=== PATIENT | female | born 1970 | race Caucasian/White ===

== ENCOUNTER 2020-10-26 15:37 | Outpatient (REF) | payer OTHER, SELFPAY ==
--- NOTE | ~2020-10-26 | MM_ITS ---
EXAMINATION: MM SCREENING DIGITAL BREAST TOMOSYNTHESIS, BILATERAL CLINICAL INFORMATION: Screening. Asymptomatic. The lifetime risk of breast cancer based on the Tyrer-Cuzick Model is 12%. COMPARISON: Mammography: 12/31/2018, 12/05/2017, 12/02/2016 TECHNIQUE: Digital breast tomosynthesis is performed in both the craniocaudal and mediolateral oblique views along with computer-aided detection (CAD). Synthesized 2D images are generated from the tomosynthesis. FINDINGS: The breasts are extremely dense, which lowers the sensitivity of mammography (ACR BI-RADS breast composition Category d). Parenchymal pattern appears similar to prior studies. There is no interval mass or architectural abnormality. The axilla and skin contours are unremarkable. There are punctate similar appearing scattered calcifications again seen in both breasts. Regional calcifications posterior upper outer right breast appear increased on the synthesized images. There is no appreciable focal grouping or ductal distribution. Patient will be recalled for additional views to further characterize. MM/MM tomosynthesis screening BI IMPRESSION: 1. Right: Regional calcifications upper outer quadrant possibly increased from prior studies. 2. Left: No mammographic evidence of malignancy. ASSESSMENT: BI-RADS 0: Incomplete - Need Additional Imaging Evaluation RECOMMENDATION: 1. Additional magnification views right breast regional calcifications. 2. Radiology department staff will contact the patient for additional imaging. This patient's information was entered into a reminder system with a target due date for their next mammogram.
== END 2020-10-26 15:38 | disposition home or self-care (01) ==
LOC: HO.MAMMO 15:37
PROVIDERS: PCP Hospitalist; Visit Provider Hospitalist
DX: Z12.31 Encounter for screening mammogram for malignant neoplasm of breast (principal)
CPT/HCPCS: 77063; 77067

== ENCOUNTER 2020-11-12 08:51 | Outpatient (REF) | payer OTHER, SELFPAY ==
--- NOTE | ~2020-11-12 | MM_ITS ---
EXAMINATION: MM DIAGNOSTIC DIGITAL MAMMOGRAPHY, RIGHT CLINICAL INFORMATION: Question increasing calcifications COMPARISON: Mammography: October 26, 2020 and studies dating back to December 02, 2015 TECHNIQUE: Digital mammography is performed in the following views: Spot magnification views right breast in craniocaudal and 90 degrees mediolateral views FINDINGS: The breasts are extremely dense, which lowers the sensitivity of mammography (ACR BI-RADS breast composition Category d). There are similar appearing scattered and loosely grouped calcifications. Recommend 6 month follow-up magnification views of the right breast to ensure stability. Results are provided to the patient at time of visit by the technologist. MM/MM added views RT IMPRESSION: Probably benign right breast calcifications. ASSESSMENT: BI-RADS 3: Probably Benign RECOMMENDATION: Diagnostic mammography in 6 months. This patient's information was entered into a reminder system with a target due date for their next mammogram.
== END 2020-11-12 08:52 | disposition home or self-care (01) ==
LOC: HO.MAMMO 08:51
PROVIDERS: Visit Provider Hospitalist
DX: R92.1 Mammographic calcification found on diagnostic imaging of breast (principal)
CPT/HCPCS: 77065

== ENCOUNTER 2021-05-19 12:16 | Outpatient (REF) | payer OTHER, SELFPAY ==
--- NOTE | ~2021-05-19 | MM_ITS ---
EXAMINATION: MM DIAGNOSTIC DIGITAL BREAST TOMOSYNTHESIS, RIGHT CLINICAL INFORMATION: Short interval six-month follow-up probable benign regional calcifications upper outer right breast The lifetime risk of breast cancer based on the Tyrer-Cuzick Model is 12%. COMPARISON: Mammography: 11/12/2020, 10/26/2020 (BI-RADS 0), 12/31/2018, 12/05/2017 TECHNIQUE: Digital breast tomosynthesis is performed in both the craniocaudal and mediolateral oblique views along with computer-aided detection (CAD). Synthesized 2D images are generated from the tomosynthesis. Additional magnification CC and magnification ML views are provided. FINDINGS: The breasts are extremely dense, which lowers the sensitivity of mammography (ACR BI-RADS breast composition Category d). Breast parenchymal pattern is similar to prior studies. There is no interval mass or architectural abnormality. The regional calcifications upper outer quadrant are similar to prior diagnostic exam. There are some scattered calcifications with layering on ML view consistent with milk of calcium. There are no interval pleomorphic types or ductal distribution. Calcifications will be reassessed again at time of annual bilateral mammography, due in 6 months. Results are provided to the patient at time of visit by the technologist. MM/MM tomosynthesis diagnostic RT IMPRESSION: No significant changes from prior exam. ASSESSMENT: BI-RADS 3: Probably Benign RECOMMENDATION: Magnification views right breast at time of annual bilateral mammography, due in 6 months. This patient's information was entered into a reminder system with a target due date for their next mammogram.
== END 2021-05-19 12:17 | disposition home or self-care (01) ==
LOC: HO.MAMMO 12:16
PROVIDERS: Visit Provider Hospitalist
DX: R92.1 Mammographic calcification found on diagnostic imaging of breast (principal)
CPT/HCPCS: 77061; 77065

== ENCOUNTER 2021-08-11 11:04 | Outpatient (REF) | payer OTHER, SELFPAY ==
[2021-08-11 12:31] LABS: COVID-19 Test Negative (Negative); IDNOW Serial# 16C4AD1C
== END 2021-08-11 11:05 | disposition home or self-care (01) ==
LOC: HO.LAB 11:04
PROVIDERS: Visit Provider Internal Medicine
DX: Z20.822 Contact with and (suspected) exposure to COVID-19 (principal)
CPT/HCPCS: 36415; 87635; C9803

== ENCOUNTER 2021-11-17 10:46 | Outpatient (REF) | payer OTHER, SELFPAY ==
--- NOTE | ~2021-11-17 | MM_ITS ---
EXAMINATION: MM DIAGNOSTIC DIGITAL BREAST TOMOSYNTHESIS, BILATERAL CLINICAL INFORMATION: Due for yearly. Also follow-up probable benign regional calcifications upper outer right breast. The lifetime risk of breast cancer based on the Tyrer-Cuzick Model is 12%. COMPARISON: Mammography: 05/19/2021, 11/12/2020, 10/26/2020 (BI-RADS 0) 12/31/2018, outside exam 12/05/2017 ([facility]). TECHNIQUE: Digital breast tomosynthesis is performed in both the craniocaudal and mediolateral oblique views along with computer-aided detection (CAD). Synthesized 2D images are generated from the tomosynthesis. FINDINGS: The breasts are extremely dense, which lowers the sensitivity of mammography (ACR BI-RADS breast composition Category d). Parenchymal pattern is similar to prior studies and there is no interval mass or architectural abnormality or developing density. The axilla and skin contours are unremarkable. There are scattered bilateral punctate benign round calcifications in each breast. The regional calcifications upper outer quadrant right breast are similar to prior diagnostic exams. There is no interval grouping or pleomorphic types or ductal distribution. The right breast calcifications for follow-up will be reassessed again at next bilateral annual mammography to conclude long-term surveillance. Results are provided to the patient at time of visit by the technologist. MM/MM tomosynthesis diagnostic BI IMPRESSION: -No mammographic evidence of malignancy. -Benign-appearing regional calcifications upper outer right breast, stable. ASSESSMENT: BI-RADS 3: Probably Benign RECOMMENDATION: Diagnostic mammography at time of next annual exam, due in 12 months. This patient's information was entered into a reminder system with a target due date for their next mammogram.
== END 2021-11-17 10:47 | disposition home or self-care (01) ==
LOC: HO.MAMMO 10:46
PROVIDERS: Visit Provider Hospitalist
DX: R92.1 Mammographic calcification found on diagnostic imaging of breast (principal)
CPT/HCPCS: 77062; 77066

== ENCOUNTER 2022-07-27 08:56 | Outpatient (REF) | payer OTHER, SELFPAY ==
[2022-07-27 14:22] LABS: MANUAL DIFF FLAG NO
[2022-07-27 14:34] LABS: Basophils Absolute Auto 0.1 X10*3/uL (0.0-0.2); Basophils Percent Auto 1.3 % (0-2); Eosinophils Absolute Auto 0.2 X10*3/uL (0.0-0.4); Eosinophils Percent Auto 3.4 % (0-4); Hematocrit 41.6 % (37.0-47.0); Hemoglobin 12.9 g/dl (12.0-16.0); Imm Gran Abs Auto 0.02 X10*3/uL (0.00-0.03); Imm Gran Pct Auto 0.4 % (0.0-0.4); Lymphocytes Absolute Auto 1.6 X10*3/uL (1.2-4.9); Lymphocytes Percent Auto 34.5 % (20-40); Mean Corpuscular Hemoglobin 25.8 pg (27.0-33.0); Mean Corpuscular Volume 83.2 fL (80.0-98.0); Mean Platelet Volume 10.7 fL (9.4-12.3); Monocytes Absolute Auto 0.4 X10*3/uL (0.1-1.2); Monocytes Percent Auto 8.8 % (2-11); Neutrophils Absolute Auto 2.4 x10*3/uL (2.0-8.3); Neutrophils Percent Auto 51.6 % (45-73); Platelet Count 247 X10*3/uL (160-400); Red Cell Distribution Width 14.2 % (11.0-16.0); White Blood Count 4.7 X10*3/uL (4.8-10.8)
[2022-07-27 17:03] LABS: Alanine Aminotransferase 27 U/L (0-31); Anion Gap 11 (12-20); Aspartate Amino Transferase 24 U/L (5-31); Blood Urea Nitrogen 12 mg/dL (9-16); Calcium 8.8 mg/dL (8.4-10.2); Carbon Dioxide 29 mmol/L (22-29); Chloride 105 mmol/L (96-108); Cholesterol 241 mg/dL; Estimated Glomerular Filt Rate > 60; Glucose Fasting 83 mg/dL (60-99); HDL Cholesterol 59 mg/dL; LDL Cholesterol Calculated 162 mg/dl; Magnesium 2.1 mg/dL (1.6-2.6); Potassium 4.1 mmol/L (3.3-5.1); Sodium 141 mmol/L (135-145); TSH reflex Free T4 4.38 uIU/mL (0.32-4.0); Triglycerides 100 mg/dL; Vitamin D 25-OH Total 58.2 ng/mL (>30)
[2022-07-27 19:02] LABS: Free T4 (Free Thyroxine) 1.03 ng/dL (0.71-1.85)
== END 2022-07-27 08:57 | disposition home or self-care (01) ==
LOC: HO.HMGCLDS 08:56
PROVIDERS: PCP Internal Medicine; Visit Provider Internal Medicine
DX: Z00.00 Encounter for general adult medical examination without abnormal findings (principal); H69.80 Other specified disorders of Eustachian tube, unspecified ear; H81.09 Meniere's disease, unspecified ear
CPT/HCPCS: 36415; 80048; 80061; 82306; 83735; 84439; 84443; 84450; 84460; 85025

== ENCOUNTER 2022-11-17 10:42 | Outpatient (REF) | payer OTHER, SELFPAY ==
--- NOTE | ~2022-11-17 | MM_ITS ---
EXAMINATION: MM DIAGNOSTIC DIGITAL BREAST TOMOSYNTHESIS, BILATERAL CLINICAL INFORMATION: Due for yearly. Also follow-up probable benign regional calcifications upper outer right breast. The lifetime risk of breast cancer based on the Tyrer-Cuzick Model is 12%. COMPARISON: Mammography: 11/17/2021, 05/19/2021, 11/12/2020, 10/26/2020 (BI-RADS 0, 12/31/2018 TECHNIQUE: Digital breast tomosynthesis is performed in both the craniocaudal and mediolateral oblique views along with computer-aided detection (CAD). Synthesized 2D images are generated from the tomosynthesis. Additional magnification right CC and magnification right ML views are obtained. FINDINGS: The breasts are extremely dense, which lowers the sensitivity of mammography (ACR BI-RADS breast composition Category d). Parenchymal pattern is similar to prior exams and there is no significant mass or developing density or architectural abnormality. No interval abnormal calcifications. The bilateral axilla and skin contours are unremarkable. Right breast calcifications for follow-up regional upper outer quadrant are similar to prior diagnostic studies and are now considered to be benign. Results are provided to the patient at time of visit by the technologist. MM/MM tomosynthesis diagnostic BI IMPRESSION: No mammographic evidence of malignancy. ASSESSMENT: BI-RADS 2: Benign RECOMMENDATION: Routine annual mammography screening. This patient's information was entered into a reminder system with a target due date for their next mammogram.
== END 2022-11-17 10:43 | disposition home or self-care (01) ==
LOC: HO.MAMMO 10:42
PROVIDERS: Visit Provider Internal Medicine
DX: R92.1 Mammographic calcification found on diagnostic imaging of breast (principal)
CPT/HCPCS: 77062; 77066

== ENCOUNTER 2022-12-19 11:45 | Outpatient (REF) | payer OTHER, SELFPAY ==
--- NOTE | ~2022-12-19 | US_ITS ---
EXAMINATION: US SCREENING ULTRASOUND BREAST, BILATERAL CLINICAL INFORMATION: Extremely dense breasts on mammography. Screening ultrasound. Tyrer-Cuzick Score 12%. COMPARISON: Mammography 11/17/2022 TECHNIQUE: Ultrasound is performed using grayscale imaging and color Doppler. Imaging is performed to include the four quadrants and retroareolar region. Both breasts are imaged. FINDINGS: Right breast: There is no suspicious finding by ultrasound. There is no cystic or solid mass or focal architectural abnormality. Left breast: There is no suspicious finding by ultrasound. There is no solid mass or focal architectural abnormality. There is an incidental simple cyst 10:00 position 5 cm from nipple measuring only 0.4 cm. US/US breast RT complete IMPRESSION: -Normal study. -Incidental tiny simple cyst left breast, 0.4 cm ASSESSMENT: BI-RADS 2: Benign RECOMMENDATION: Routine annual mammography screening. This patient's information was entered into a reminder system with a target due date for their next mammogram.
--- NOTE | ~2022-12-19 | US_ITS ---
EXAMINATION: US SCREENING ULTRASOUND BREAST, BILATERAL CLINICAL INFORMATION: Extremely dense breasts on mammography. Screening ultrasound. Tyrer-Cuzick Score 12%. COMPARISON: Mammography 11/17/2022 TECHNIQUE: Ultrasound is performed using grayscale imaging and color Doppler. Imaging is performed to include the four quadrants and retroareolar region. Both breasts are imaged. FINDINGS: Right breast: There is no suspicious finding by ultrasound. There is no cystic or solid mass or focal architectural abnormality. Left breast: There is no suspicious finding by ultrasound. There is no solid mass or focal architectural abnormality. There is an incidental simple cyst 10:00 position 5 cm from nipple measuring only 0.4 cm. US/US breast LT complete IMPRESSION: -Normal study. -Incidental tiny simple cyst left breast, 0.4 cm ASSESSMENT: BI-RADS 2: Benign RECOMMENDATION: Routine annual mammography screening. This patient's information was entered into a reminder system with a target due date for their next mammogram.
== END 2022-12-19 11:46 | disposition home or self-care (01) ==
LOC: HO.MAMMO 11:45
PROVIDERS: PCP Internal Medicine; Visit Provider Internal Medicine
DX: R92.2 Inconclusive mammogram (principal)
CPT/HCPCS: 76641

== ENCOUNTER 2023-03-07 11:51 | Outpatient (AMB) | payer OTHER, SELFPAY ==
--- NOTE | 2023-03-07 13:03 | A.OFFPC_ITS ---
Vital Signs 03/07/23 13:06 Height 5 ft 6 in Weight 158 lb BMI 25.5 BP 116/74 Blood Pressure Location Lt brachial Position Sitting Pulse 77 Pulse Source Pulse Oximeter Pulse Oximetry (%) 99 Oxygen Delivery Method Room Air Intake Visit Reasons: right shoulder and medical issues Intake Note: Pt is here today c/o Rt shoulder pain with weakness seen at [facility] they want surgery and patient wants to discuss any other options Allergies penicillin G Allergy (Unknown, Verified 03/07/23 13:16) Unknown penicillin G procaine Allergy (Unknown, Verified 03/07/23 13:16) Unknown penicillin V Allergy (Unknown, Verified 03/07/23 13:16) unknown latex glove Allergy (Unknown, Uncoded 03/07/23 13:16) Rash Penicillin G Proc & Benzathine Allergy (Unknown, Uncoded 03/07/23 13:16) Unknown Penicillium Notatum Allergy (Unknown, Uncoded 03/07/23 13:16) Unknown Medication List - Last Reconciled 03/07/23 by Dolores Jeronimo MD cetirizine (Zyrtec) 10 mg PO DAILY PRN cholecalciferol (vitamin D3) 125 mcg PO DAILY magnesium 400 mg PO DAILY zinc acetate orally 2 TIMES A WEEK; Tobacco use date assessed: 03/07/23 Dental Screening Dental Screen Date: 03/07/23 Did you have a dental visit in the last 12 months?: Yes Did you have a dental problem in the last 6 months where you did not have access to dental care?: No Was dental information given to patient?: Patient has dentist HPI right shoulder and medical issues HPI Details 53-year-old lady here today complaining of right shoulder pain, here today discuss other possible treatment options. She has been seeing Dr. Kendall at [facility] who ordered an MRI again of her right shoulder with results still pending, to better assess the tendon quality and make better productions whether or not rotator cuff repair may be indicated. She however is not due for a repeat corticosteroid injection at this time as she just had 1 in November of 2022, with relief only afforded for 2 months. Patient is very hesitant in getting repeat surgery in her shoulder, would like to try ultrasound-guided percutaneous lavage coupled with subacromial injection , or High energy shock wave therapy, however these treatments are not available at [facility] or at [facility] Medical History (Updated 03/08/23 @ 01:12 by Dolores Jeronimo MD) Calcific tendinitis of right shoulder Dense breast tissue on mammogram Eustachian tube dysfunction Meniere syndrome Tendinopathy of right shoulder Surgical History Hx of shoulder surgery S/p bilateral myringotomy with tube placement Family History Mother No problems noted. Father No problems noted. Social History Housing: House Patient Tobacco Use Status: Never used Tobacco e-Cigarette/Vaping Use: Never Used service: No Current occupational status: employed Cognitive needs: No Hearing needs: No Vision needs: Yes Questionnaire PHQ-9 Over the last 2 weeks, how often have you been bothered by any of the following problems? 1. Little interest or pleasure in doing things: not at all 2. Feeling down, depressed, or hopeless: not at all 3. Trouble falling or staying asleep, or sleeping too much: not at all 4. Feeling tired or having little energy: not at all 5. Poor appetite or overeating: not at all 6. Feeling bad about yourself - or that you are a failure or have let yourself or your family down: not at all 7. Trouble concentrating on things, such as reading the newspaper or watching television: not at all 8. Moving or speaking so slowly that other people could have noticed. Or the opposite - being so fidgety or restless that you have been moving around a lot more than usual: not at all 9. Thoughts that you would be better off or of hurting yourself in some way: not at all Total score: 0 Depression Screening Interpretation: Negative 45812 - PHQ-9 Billing: Yes Source: Developed by Drs. Sean Jackson, Lorraine Owen, Jose Brown and colleagues, with an educational amarilis from [employer]. Thrive Questionnaire Date Thrive assessed: 03/07/23 I am a: Patient What is your living situation today?: I have a steady place to live Within the past 12 months, did the food you bought not last and you didn't have the money to get more?: Never true Within the past 12 months, did you worry whether your food would run out before you got money to buy more?: Never true Do you have trouble paying for medicines?: No Do you have trouble getting transportation to medical appointments?: No Do you have trouble paying your heating and electricity bill?: No Do you have trouble taking care of your child, family member or friend?: No Do you have trouble with day-to-day activities such as bathing, preparing meals, shopping, managing finances, etc.?: No Are you currently unemployed and looking for a job?: No Are you interested in more education?: No AUDIT C Alcohol Use Questionnaire (AUDIT-C) 1. How often do you have a drink containing alcohol?: Never Total Score: 0 GUANAKO-7 AMB Questionnaire GUANAKO-7 Date GUANAKO - 7 assessed: 03/07/23 Feeling nervous, anxious, or on edge: 0 = Not at all Not being able to stop or control worryin = Not at all Worrying too much about different things: 0 = Not at all Trouble relaxin = Not at all Being so restless that it is hard to sit still: 0 = Not at all Becoming easily annoyed or irritable: 0 = Not at all Feeling afraid as if something awful might happen: 0 = Not at all Total GUANAKO-7 score (0-4 normal; 5-9 mild; 10-14 moderate; 15-21 severe): 0 Source: Developed by Drs. Sean Jackson, Lorraine Owen, Jose Brown and colleagues, with an educational amarilis from [employer]. Review of Systems Const All systems reviewed & are unremarkable except as noted in HPI and below Physical exam (Primary Care) Vital Signs: Last Vital Signs Pulse 77 03/07/23 13:06 BP 116/74 03/07/23 13:06 Pulse Ox 99 03/07/23 13:06 Oxygen Delivery Method Room Air 03/07/23 13:06 BMI result Body Mass Index 25.5 Tobacco/Smoking Status: Tobacco use Status Tobacco use date assessed 03/07/23 03/07/23 13:08 Patient Tobacco Use Status Never used Tobacco 03/07/23 13:03 e-Cigarette/Vaping Use Never Used 03/07/23 13:03 PHQ-9: PHQ-9 Score PHQ-9: Total score 0 03/07/23 13:30 Depression Screening Interpretation: Negative Thrive Assessment: Date of Thrive Assessment Date Thrive assessed 03/07/23 03/07/23 13:12 Const Other: Alert oriented x3, no acute distress noted, ambulatory normal gait Extrem Other: Tenderness on palpation over right shoulder joint, with limited range of motion especially on abduction of joint due to pain Assessment and Plan Assessment & Plan (1) Enteropathic arthropathy of right shoulder: Code(s): M07.611 - Enteropathic arthropathies, right shoulder (2) Calcific tendinitis of right shoulder: Code(s): M75.31 - Calcific tendinitis of right shoulder Plan: Will refer for physical therapy to see if this will help alleviate some of her discomfort. In the meantime advised patient to check with her insurance if she is able to see orthopedics in [place], were may have more advanced treatment options available for her that are not as invasive as arthroscopic surgery Orders: Orders PT Evaluation and Treatment 03/07/23 M07.611 - Enteropathic arthropathies, right shoulder Coding Level of Care Code Est Pt Level 3 (87455) Diagnoses Enteropathic arthropathy of right shoulder M07.611 Calcific tendinitis of right shoulder M75.31
[2023-03-07 13:06] VITALS: BP 116/74; PULSE 77; O2SAT 99; BMI 25.5
== END 2023-03-07 13:42 | disposition home or self-care (01) ==
PROVIDERS: PCP Internal Medicine; Visit Provider Internal Medicine
DX: M07.611 Enteropathic arthropathies, right shoulder (principal); M75.31 Calcific tendinitis of right shoulder
CPT/HCPCS: 99213

== ENCOUNTER 2023-03-28 07:11 | Outpatient (REF) | payer OTHER, SELFPAY ==
--- NOTE | ~2023-03-28 | MR_ITS ---
EXAMINATION: MR SHOULDER WITHOUT CONTRAST, RIGHT CLINICAL INFORMATION: Pain. Question rotator cuff tear. COMPARISON: 10/29/2008 TECHNIQUE: MRI of the shoulder without contrast was performed on a high-field scanner. FINDINGS: ROTATOR CUFF: A small partial-thickness articular sided tear is evident at the anterior fibers of the supraspinatus tendon, measuring approximately 8 x 6 mm in area involving the deep third of the tendon cross-section. There is [id number] associated supraspinatus and subscapularis tendinosis. Undersurface fraying is present at the subscapularis tendon without a discrete tear. Infraspinatus tendon is intact with more mild tendinosis. There are small foci of low signal intensity at the bursal surface margin of the supraspinatus and infraspinatus tendon insertions measuring 2 and 3 mm in diameter, less pronounced as compared to prior, most consistent with foci residual calcific tendinitis.. There is mild surrounding edema signal in this region. Subtle underlying cortical irregularity is noted at the greater tuberosity. No muscle atrophy or fatty infiltration. BICEPS: Normal. CORACOACROMIAL ARCH: The undersurface of the acromion is remodeled, likely due to prior subacromial decompression. There is blunting of the distal clavicle, likely the result of prior distal clavicular resection. Trace subacromial subdeltoid bursal fluid. LABRUM/CAPSULE: Labrum and joint capsule are intact. GLENOHUMERAL JOINT/MARROW: There is subtle cortical irregularity at the greater tuberosity which is likely due to chronic overlying tendinopathy. No fractures. Articular cartilage appears relatively well-preserved. No effusion. No fracture or malalignment. MR/MR shoulder RT wo con IMPRESSION: 1. [id number] supraspinatus and subscapularis tendinosis with a small 8 x 6 mm partial-thickness articular sided tear of the anterior fibers of the supraspinatus tendon. 2. Small foci of calcific tendinitis at the supraspinatus and infraspinatus tendon insertions, less pronounced as compared to prior. 3. Status post subacromial decompression and distal clavicular resection.
== END 2023-03-28 07:12 | disposition home or self-care (01) ==
LOC: HO.MRI 07:11
PROVIDERS: PCP Internal Medicine; Visit Provider Orthopaedic Surgery
DX: M25.511 Pain in right shoulder (principal)
CPT/HCPCS: 73221

== ENCOUNTER 2023-05-16 11:00 | Outpatient (RCR) | payer OTHER, SELFPAY ==
--- NOTE | 2023-04-05 08:49 | MHC.PT.EP ---
[facility] [place] Office [place] Office [place] Office [address] Jason Diego [address] [phone] F: [phone] F: [phone] F: [phone] F: [phone] Physical Therapy Plan of Care Date of Evaluation: Date of Surgery: NA Diagnosis: Assessment: Pt IS 53 YO F REFERRED TO PT FROM DR PRADO WITH R SHLDER ARTHROPATHY. Pt HAS HAD SAD B SHLDER IN PAST NOW WITH SUPRASPINATUS TEAR. TO SEE SURGEON ON MONDAY RE SURGERY ( CLEAN UP CALCIUM DEPOSITS ). PRESENTS WITH R SHLDER PAIN, LIMITED STRENGTH AND SLIGHT DECREASE IN END RANGE OF MOTION. GOOD PT CANDIDATE TO ADDRESS THESE ISSUES Frequency and Duration: The patient will be seen 2X/WK X 4 WKS Short Term Goals: 1. INCREASED POSTURE AWARENESS AND AWARNESS SHLDER CARE 2. I HEP WITH DC EX PLAN Residential Goals: 1. DECREASED R SHLDER PAIN WITH ADLS 2. I KT (WITH ASSIST AT HOME) IF INDICATED Treatment Plan: Modalities to reduce pain, spasms and effusion. Manual therapy to restore motion and function. Therapeutic exercise to improve strength and flexibility. Neuromuscular re-education for posture and balance. Therapeutic activities to return to functional activities of daily living. Electronically signed by: FLAQUITO DEL REAL PT Please sign and return to therapist. Thank you for your referral.
--- NOTE | 2023-05-16 12:51 | MHC.PT.DC ---
[facility] [place] Office [place] Office [place] Office [address] Jason Diego [address] [phone] F: [phone] F: [phone] F: [phone] F: [phone] Physical Therapy Discharge Report Diagnosis: ARTHROPATHY R SHLDER Date of Surgery: NA Date of Evaluation: 04/04/23 Date of Discharge: 05/16/23 Treatments to Date: Cancellations to Date: No Shows to Date: Discharge Status: Achieved Goals Discharge Summary: Pt REPORTS SIGNIF REDUCTION IN PAIN AND IMPROVEMENT IN ROM (STANDING ABDUCTION WFLS WITHOUT PINCH ) Electronically signed by: FLAQUITO DEL REAL PT Please sign and return to therapist. Thank you for your referral.
== END 2023-05-16 12:51 | disposition home or self-care (01) ==
LOC: HO.PT 11:00
PROVIDERS: PCP Internal Medicine; Visit Provider Registered Nurse
DX: M07.611 Enteropathic arthropathies, right shoulder (principal)
CPT/HCPCS: 97110; 97140; 97161; 97535

== ENCOUNTER 2023-08-01 09:13 | Outpatient (AMB) | payer OTHER, SELFPAY ==
[2023-08-01 09:30] VITALS: BP 114/86; PULSE 72; O2SAT 98; BMI 26.7
--- NOTE | 2023-08-01 09:30 | A.OFFPC_ITS ---
Vital Signs 08/01/23 09:30 Height 5 ft 6 in Weight 165 lb 4 oz BMI 26.7 BP 114/86 Blood Pressure Location Lt brachial Position Sitting Pulse 72 Pulse Source Pulse Oximeter Pulse Oximetry (%) 98 Oxygen Delivery Method Room Air Intake Visit Reasons: Annual PE Intake Note: Pt is here for her Annual PE Last Pap 12/04 at [facility] Is last menstrual period known: Yes Last menstrual period: 07/03/23 Allergies penicillin G Allergy (Unknown, Verified 09/07/23 15:47) Unknown penicillin G procaine Allergy (Unknown, Verified 09/07/23 15:47) Unknown penicillin V Allergy (Unknown, Verified 09/07/23 15:47) unknown latex glove Allergy (Unknown, Uncoded 09/07/23 15:47) Rash Penicillin G Proc & Benzathine Allergy (Unknown, Uncoded 09/07/23 15:47) Unknown Penicillium Notatum Allergy (Unknown, Uncoded 09/07/23 15:47) Unknown Medication List - Last Reconciled 09/07/23 by Dolores Jeronimo MD cetirizine (Zyrtec) 10 mg PO DAILY PRN cholecalciferol (vitamin D3) 125 mcg PO DAILY magnesium 400 mg PO DAILY multivitamin (Daily Multi-Vitamin tablet) 1 tab PO DAILY mupirocin calcium 2% 1 appl topical TID 7 days zinc acetate orally 2 TIMES A WEEK; Tobacco use date assessed: 08/01/23 Dental Screening Dental Screen Date: 08/01/23 Did you have a dental visit in the last 12 months?: Yes Did you have a dental problem in the last 6 months where you did not have access to dental care?: No Was dental information given to patient?: Patient has dentist HPI Annual PE HPI Details 53-year-old lady here today for physical exam. Currently sees her own OBGYN, up-to-date with her Pap smear and pelvic exam done November 2022. [facility] Medical History (Updated 08/01/23 @ 10:36 by Dolores Jeronimo MD) Elevated TSH Hyperlipidemia Calcific tendinitis of right shoulder Dense breast tissue on mammogram Meniere syndrome Eustachian tube dysfunction Tendinopathy of right shoulder Surgical History (Updated 08/01/23 @ 10:12 by Dolores Jeronimo MD) S/p bilateral myringotomy with tube placement Hx of shoulder surgery Family History Mother No problems noted. Father No problems noted. Social History Housing: House Patient Tobacco Use Status: Never used Tobacco e-Cigarette/Vaping Use: Never Used service: No Current occupational status: employed Cognitive needs: No Hearing needs: No Vision needs: Yes Female Reproductive History Menstrual Date of last menstrual period: 07/03/23 History of abnormal pap smear: No Other: goes to [facility] , sees Dr Loera who does her cervical screen Questionnaire Thrive Questionnaire Date Thrive assessed: 03/07/23 AUDIT C Alcohol Use Questionnaire (AUDIT-C) 1. How often do you have a drink containing alcohol?: Monthly or less 2. How many drinks containing alcohol do you have on a typical day when you are drinking?: 1 or 2 3. How often do you have six or more drinks on one occasion?: Never Total Score: 1 GUANAKO-7 AMB Questionnaire GUANAKO-7 Date GUANAKO - 7 assessed: 03/07/23 Source: Developed by Drs. Sean Jackson, Lorraine Owen, Jose Brown and colleagues, with an educational amarilis from [employer]. Review of Systems Const Reports no additional complaints Eyes Details: Goes to [facility], up-to-date with eye exam, wears reading glasses ENT Reports Normal hearing present, Denies dizziness, Denies ear discharge, Denies otalgia, Denies hearing loss, Denies disequilibrium and Reports tinnitus (Occasional) Card Reports no additional complaints Resp Reports no additional complaints GI Denies abdominal pain, Denies melena, Reports bloating (Just before menstrual cycle), Denies hematochezia, Reports constipation (Occasion), Denies heartburn and Denies nausea Details: Followed by Dr. Loera Reports hot flashes Musc Details: Shoulder pain stiffness, currently being followed at [facility] Denies muscle weakness Skin/Breast Details: sees [facility] for her routine skin exam Neuro Reports no additional complaints, Reports Normal hearing present, Denies dizziness and Denies disequilibrium Psych Reports no additional complaints Endo Reports no additional complaints Carlitos/Lymph Reports no additional complaints Aller/Immun Reports as per HPI Physical exam (Primary Care) Vital Signs: Last Vital Signs Pulse 72 08/01/23 09:30 BP 114/86 08/01/23 09:30 Pulse Ox 98 08/01/23 09:30 Oxygen Delivery Method Room Air 08/01/23 09:30 BMI result Body Mass Index 26.7 Tobacco/Smoking Status: Tobacco use Status Tobacco use date assessed 08/01/23 08/01/23 09:41 Patient Tobacco Use Status Never used Tobacco 08/01/23 09:30 e-Cigarette/Vaping Use Never Used 08/01/23 09:30 Thrive Assessment: Date of Thrive Assessment Date Thrive assessed 03/07/23 08/01/23 09:30 Const General: cooperative, comfortable, no acute distress, alert and awake Nutritional Appearance: average body habitus Orientation/consciousness: patient oriented x3 Limitations: no limitations HENMT Head: Yes normocephalic and Yes atraumatic Ears: hearing grossly normal bilaterally, external ears normal, TM's normal bilaterally and EAC's normal General nose exam: Normal external nose present and No nasal discharge present Face and sinus: Yes sinuses nontender and Yes face symmetric Mouth: Normal oral and palatal mucosa present, oropharynx normal and moist mucous membranes abnormal Eyes General: appearance normal, both eyes and all related structures Conjunctivae: conjunctivae normal Sclerae: sclerae normal Corneas: corneas normal Pupils: Equal, round and reactive pupils present EOM: EOMs intact bilaterally Direct Ophthalmoscopy: normal light reflex Neck Neck: Yes full ROM, Yes no lymphadenopathy and Yes supple Thyroid: Thyroid normal Chest Chest palpation & inspection: normal inspection of the chest Breast/axilla palpation: normal palpation of the breasts Resp Effort & Inspection: normal respiratory effort and able to speak in complete sentences Auscultation: clear to auscultation bilaterally Cardio Jugular venous distension: no JVD Palpation: normal PMI Rate: regular rate Rhythm: regular rhythm Heart sounds: S1 normal heart sound present and S2 normal heart sound present Bruits: no abdominal aortic bruits GI Inspection: Yes normal to inspection Palpation (GI): No Abdominal aortic bruit present, Soft to palpation, nontender, no guarding and no masses Auscultation: normal bowel sounds General: Yes no CVA tenderness and Yes deferred (sees for her routine Pap and pelvic exam) Back/Spine/Pelvis Back: no CVA tenderness and No back tenderness Cervical Spine: cervical ROM normal Thoracic/Lumbar Spine: thoracic and lumbar spine normal to inspection Pelvis: no pain with anterior-posterior compression Skin General skin exam: no rashes or lesions noted Neuro General: patient oriented x3, gait normal, tone normal, moves all extremities and CN's II-XI intact bilaterally Cranial nerves: Yes Equal, round and reactive pupils present and Yes Normal hearing present Cognition (Neuro): normal cognition Gait exam (Neuro): Normal gait present Extrem General: Yes normal to inspection, Yes full ROM, Yes no joint enlargement, Yes no clubbing, cyanosis or edema, Yes no calf tenderness and Yes normal gait Psych Appearance: grossly normal and well kempt Mental Status: mental status grossly normal Speech and movement: Normal speech and movement present Affect: normal affect Attitude: cooperative Thought process: Normal thought process present Thought content: Normal thought content present Immunizations Boostrix Tdap 2.5 Lf unit-8 mcg-5 Lf/0.5 mL intramuscular syringe Performing Provider: Dolores Jeronimo MD [facility] Administered by: Karlene Goss CMA on 08/01/23 10:43 Dose Route Admin Location Dispensed Lot Number Expiration Date NDC Personal Care Aide 0.5 mL IM Left Deltoid 0.5 mL [id number] 07/19/25 [id number] [employer] VIS Given Date VIS Provided VIS Publication Date 08/01/23 Single Vaccine 21 Eligibility Eligibility Date Funding Source Not [facility] Eligible 08/01/23 Private Assessment and Plan Assessment & Plan (1) Annual visit for general adult medical examination with abnormal findings: Code(s): Z00.01 - Encounter for general adult medical examination with abnormal findings Plan: Will check appropriate labs. Continue regular dental visit every 6 months and regular eye exams, at least every 2 years. Take adequate calcium in diet and continue vitamin-D 3 at 5000 IU per cap TIW, in addition to weight-bearing exercises to help maintain good muscle tone and weight control, continue yoga. Continue to do self-breast exam, and get yearly mammogram, . She sees [facility] for her routine Pap and pelvic exam, currently up-to-date.. Up-to-date with her flu shot and COVID vaccination, recently contracted COVID infection, up-to-date with her shingles vaccine, Tdap given today. Up-to-date with her screening colonoscopy (2) Elevated TSH: Code(s): R79.89 - Other specified abnormal findings of blood chemistry Plan: Repeat another TSH and free T4 level. Currently asymptomatic (3) Hyperlipidemia: Code(s): E78.5 - Hyperlipidemia, unspecified Qualifiers: Hyperlipidemia type: pure hypercholesterolemia Qualified Code(s): E78.00 - Pure hypercholesterolemia, unspecified Plan: Fasting lipid panel ordered today, advised to try following a Mediterranean diet, continue regular exercise (4) Folliculitis: Code(s): L73.9 - Follicular disorder, unspecified Plan: Prescription sent for mupirocin 2% cream, apply 3 times a day to affected area for 7 days, return to clinic if no i resolution of lesion seen Orders: Orders Lipid Panel 08/02/23 Z00.01 - Encounter for general adult medical examination with abnormal findings, L73.9 - Follicular disorder, unspecified, E78.5 - Hyperlipidemia, unspecified, R79.89 - Other specified abnormal findings of blood chemistry Glucose Fasting 08/02/23 Z00.01 - Encounter for general adult medical examination with abnormal findings, L73.9 - Follicular disorder, unspecified, E78.5 - Hyperlipidemia, unspecified, R79.89 - Other specified abnormal findings of blood chemistry Basic Metabolic Panel Fasting 08/02/23 Z00.01 - Encounter for general adult medical examination with abnormal findings, L73.9 - Follicular disorder, unspecified, E78.5 - Hyperlipidemia, unspecified, R79.89 - Other specified abnormal findings of blood chemistry Free T4 (Free Thyroxine) 3 Months E03.9 - Hypothyroidism, unspecified, Z00.01 - Encounter for general adult medical examination with abnormal findings, L73.9 - Follicular disorder, unspecified, E78.5 - Hyperlipidemia, unspecified, R79.89 - Other specified abnormal findings of blood chemistry TDaP Immunization 08/01/23 Z23 - Encounter for immunization Vitamin D 25-OH Total 08/02/23 Z00.01 - Encounter for general adult medical examination with abnormal findings, L73.9 - Follicular disorder, unspecified, E78.5 - Hyperlipidemia, unspecified, R79.89 - Other specified abnormal findings of blood chemistry Vitamin B12 and Folate 08/02/23 Z00.01 - Encounter for general adult medical examination with abnormal findings, L73.9 - Follicular disorder, unspecified, E78.5 - Hyperlipidemia, unspecified, R79.89 - Other specified abnormal findings of blood chemistry Thyroid Stimulating Hormone 08/02/23 Z00.01 - Encounter for general adult medical examination with abnormal findings, L73.9 - Follicular disorder, unspecified, E78.5 - Hyperlipidemia, unspecified, R79.89 - Other specified abnormal findings of blood chemistry Medications: New mupirocin calcium 2% 1 appl topical TID 30 grams 0RF 7 days L73.9 - Follicular disorder, unspecified Coding Level of Care Code Est Pt Prev Care 40-64y(28879) Diagnoses Annual visit for general adult medical examination with abnormal findings Z00.01 Elevated TSH R79.89 Pure hypercholesterolemia E78.00 Hyperlipidemia type: pure hypercholesterolemia Folliculitis L73.9
== END 2023-08-01 10:43 | disposition home or self-care (01) ==
PROVIDERS: Visit Provider Internal Medicine
DX: Z23 Encounter for immunization (principal)
CPT/HCPCS: 90471; 90715; 99396

== ENCOUNTER 2023-08-02 07:56 | Outpatient (REF) | payer OTHER, SELFPAY ==
[2023-08-02 12:36] LABS: Folate 11.4 ng/mL (> or = 4.0); Vitamin B12 996 pg/mL (200-900)
[2023-08-02 14:49] LABS: Anion Gap 10 (12-20); Blood Urea Nitrogen 16 mg/dL (9-16); Calcium 8.8 mg/dL (8.4-10.2); Carbon Dioxide 28 mmol/L (22-29); Chloride 105 mmol/L (96-108); Cholesterol 216 mg/dL (<200); Estimated Glomerular Filt Rate > 60; Glucose Fasting 83 mg/dL (60-99); HDL Cholesterol 58 mg/dL (>40); LDL Cholesterol Calculated 140 mg/dL (<100); Potassium 4.4 mmol/L (3.3-5.1); Sodium 139 mmol/L (135-145); Triglycerides 94 mg/dL (<150)
[2023-08-02 15:07] LABS: Thyroid Stimulating Hormone 4.62 uIU/mL (0.32-4.0); Vitamin D 25-OH Total 74.5 ng/mL (>30)
== END 2023-08-02 07:57 | disposition home or self-care (01) ==
LOC: HO.HMGCLDS 07:56
PROVIDERS: PCP Internal Medicine; Visit Provider Internal Medicine
DX: Z00.01 Encounter for general adult medical examination with abnormal findings (principal); L73.9 Follicular disorder, unspecified; R79.89 Other specified abnormal findings of blood chemistry; E78.5 Hyperlipidemia, unspecified
CPT/HCPCS: 36415; 80048; 80061; 82306; 82607; 82746; 84443

== ENCOUNTER 2023-10-11 14:40 | Outpatient (AMB) | payer OTHER, SELFPAY ==
--- NOTE | 2023-10-11 14:37 | MHC.PC.OV ---
Intake Visit Reasons: f/u depression I phone [phone] Allergies penicillin G Allergy (Unknown, Verified 10/11/23 15:03) Unknown penicillin G procaine Allergy (Unknown, Verified 10/11/23 15:03) Unknown penicillin V Allergy (Unknown, Verified 10/11/23 15:03) unknown latex glove Allergy (Unknown, Uncoded 10/11/23 15:03) Rash Penicillin G Proc & Benzathine Allergy (Unknown, Uncoded 10/11/23 15:03) Unknown Penicillium Notatum Allergy (Unknown, Uncoded 10/11/23 15:03) Unknown Medication List - Last Reconciled 10/11/23 by Dolores Jeronimo MD cetirizine (Zyrtec) 10 mg PO DAILY PRN cholecalciferol (vitamin D3) 125 mcg PO DAILY magnesium 400 mg PO DAILY multivitamin (Daily Multi-Vitamin tablet) 1 tab PO DAILY mupirocin calcium 2% 1 appl topical TID 7 days zinc acetate orally 2 TIMES A WEEK; Tobacco use date assessed: 10/11/23 Dental Screening Dental Screen Date: 10/11/23 Did you have a dental visit in the last 12 months?: Yes Did you have a dental problem in the last 6 months where you did not have access to dental care?: No Was dental information given to patient?: Patient has dentist HPI f/u depression I phone [phone] HPI Details 53-year-old perimenopausal female, here today by telehealth complaining of fluctuating moods with frequent anxiety attacks, difficulty sleeping, present now for the last several months. Patient states that there are days that she is unable to fall asleep due to constant worrying, has episodes of depression with no triggers or precipitating event. Had episodes in the past but would come and go and is easily controlled with behavioral modifications. Has seen therapist in the past but has never been on any medication for depression or anxiety [facility] Medical History Mixed anxiety and depressive disorder Elevated TSH Hyperlipidemia Calcific tendinitis of right shoulder Dense breast tissue on mammogram Meniere syndrome Eustachian tube dysfunction Tendinopathy of right shoulder Surgical History S/p bilateral myringotomy with tube placement Hx of shoulder surgery Family History Mother No problems noted. Father No problems noted. Social History Housing: House Patient Tobacco Use Status: Never used Tobacco e-Cigarette/Vaping Use: Never Used service: No Current occupational status: employed Cognitive needs: No Hearing needs: No Vision needs: Yes Questionnaire PHQ-9 Over the last 2 weeks, how often have you been bothered by any of the following problems? 1. Little interest or pleasure in doing things: not at all 2. Feeling down, depressed, or hopeless: several days 3. Trouble falling or staying asleep, or sleeping too much: more than half the days 4. Feeling tired or having little energy: several days 5. Poor appetite or overeating: several days 6. Feeling bad about yourself - or that you are a failure or have let yourself or your family down: not at all 7. Trouble concentrating on things, such as reading the newspaper or watching television: not at all 8. Moving or speaking so slowly that other people could have noticed. Or the opposite - being so fidgety or restless that you have been moving around a lot more than usual: several days 9. Thoughts that you would be better off or of hurting yourself in some way: not at all Total score: 6 Depression Screening Interpretation: Positive Depression Screening Follow-up: New Medication prescribed, Community Mental Health Worker F/U and Follow-up Visit Requested Depression Screening Done: Yes 23762 - PHQ-9 Billing: Yes Source: Developed by Drs. Sean Jackson, Lorraine Owen, Jose Brown and colleagues, with an educational amarilis from [email or web address]. Thrive Questionnaire Date Thrive assessed: 10/11/23 I am a: Patient What is your living situation today?: I have a steady place to live Within the past 12 months, did the food you bought not last and you didn't have the money to get more?: Never true Within the past 12 months, did you worry whether your food would run out before you got money to buy more?: Never true Do you have trouble paying for medicines?: No Do you have trouble getting transportation to medical appointments?: No Do you have trouble paying your heating and electricity bill?: No Do you have trouble taking care of your child, family member or friend?: No Do you have trouble with day-to-day activities such as bathing, preparing meals, shopping, managing finances, etc.?: No Are you currently unemployed and looking for a job?: No Are you interested in more education?: No Please select the resources that you would like help with: None THRIVE Score: 0 AUDIT C Alcohol Use Questionnaire (AUDIT-C) 1. How often do you have a drink containing alcohol?: 2-4 times a month 2. How many drinks containing alcohol do you have on a typical day when you are drinking?: 1 or 2 3. How often do you have six or more drinks on one occasion?: Never Total Score: 2 GUANAKO-7 AMB Questionnaire GUANAKO-7 Date GUANAKO - 7 assessed: 03/15/23 Feeling nervous, anxious, or on edge: 1 = Several days Not being able to stop or control worryin = Not at all Worrying too much about different things: 0 = Not at all Trouble relaxin = Several days Being so restless that it is hard to sit still: 0 = Not at all Becoming easily annoyed or irritable: 1 = Several days Feeling afraid as if something awful might happen: 1 = Several days Total GUANAKO-7 score (0-4 normal; 5-9 mild; 10-14 moderate; 15-21 severe): 4 Source: Developed by Drs. Sean Jackson, Lorraine Owen, Jose Brown and colleagues, with an educational amarilis from [email or web address]. GUANAKO-7 Assessment Billing GUANAKO-7 Assessment Tool: GUANAKO-7 Assessment 85880 Review of Systems Const Reports as per HPI, Denies headache(s), Reports lethargy and Reports malaise ENT Reports no additional complaints and Denies headache(s) Card Reports no additional complaints GI Denies abdominal pain and Denies change in bowel habits Neuro Denies behavioral changes and Denies headache(s) Psych Reports no additional complaints, Reports as per HPI and Denies behavioral changes Physical exam (Primary Care) Tobacco/Smoking Status: Tobacco use Status Tobacco use date assessed 10/11/23 10/11/23 14:40 Patient Tobacco Use Status Never used Tobacco 10/11/23 14:40 e-Cigarette/Vaping Use Never Used 10/11/23 14:40 PHQ-9: PHQ-9 Score PHQ-9: Total score 6 10/11/23 15:13 Depression Screening Interpretation: Positive Depression Screening Follow-up: New Medication prescribed, Community Mental Health Worker F/U and Follow-up Visit Requested Thrive Assessment: Date of Thrive Assessment Date Thrive assessed 10/11/23 10/11/23 14:40 Telehealth Telehealth Location of provider rendering services: practice address Location of patient: address on file Patient Identification confirmed using: Name, : Yes Telehealth method: video Patient verbally consented to treatment: Yes Patient verbally consented to billing insurance company: Yes Patient informed of any privacy concerns related to visit: Yes Minutes spent on Phone/Video with Pt.: 15 Assessment and Plan Assessment & Plan (1) Mixed anxiety and depressive disorder: Code(s): F41.8 - Other specified anxiety disorders Plan: start on buspirone 5 mg per tablet to take 1 tablet twice a day and reserve the 3rd dose to take as needed for acute episodes of anxiety prescription also sent for trazodone 50 mg per tablet to take 1/2-1 tablet at bedtime as needed for insomnia. Rindge at least 6-7 hours of sleep when taking the medication. Referred to [facility] for assistance in getting in for counseling/therapy. Will see her back for follow-up in 4 weeks Orders: Referrals Psychiatry Referral F41.8 - Other specified anxiety disorders Medications: New trazodone 50 mg PO BEDTIME PRN 20 tabs 0RF insomnia buspirone 5 mg PO TID 90 tabs 1RF F41.8 - Other specified anxiety disorders Coding Level of Care Code Tele Est Pt Level 3 (97731) Diagnoses Mixed anxiety and depressive disorder F41.8 Additional Codes GUANAKO-7 Assessment Billing - GUANAKO-7 Assessment Tool: GUANAKO-7 Assessment [id number] ([id number])
== END 2023-10-11 16:45 | disposition home or self-care (01) ==
LOC: HO.HMGC 14:41
PROVIDERS: PCP Internal Medicine; Visit Provider Internal Medicine
DX: F41.8 Other specified anxiety disorders (principal)
CPT/HCPCS: 96127; 99213

== ENCOUNTER 2023-10-25 06:59 | Outpatient (REF) | payer OTHER, SELFPAY ==
[2023-10-25 12:21] LABS: Glucose Fasting 78 mg/dL (60-99)
[2023-10-25 12:27] LABS: Free T4 (Free Thyroxine) 0.93 ng/dL (0.71-1.85)
== END 2023-10-25 07:00 | disposition home or self-care (01) ==
LOC: HO.HMGCLDS 06:59
PROVIDERS: PCP Internal Medicine; Visit Provider Internal Medicine
DX: Z00.01 Encounter for general adult medical examination with abnormal findings (principal); L73.9 Follicular disorder, unspecified; E78.5 Hyperlipidemia, unspecified; R79.89 Other specified abnormal findings of blood chemistry; E03.9 Hypothyroidism, unspecified
CPT/HCPCS: 36415; 82947; 84439

== ENCOUNTER 2023-12-07 10:33 | Outpatient (REF) | payer OTHER, SELFPAY ==
--- NOTE | ~2023-12-07 | MM_ITS ---
EXAMINATION: MM SCREENING DIGITAL BREAST TOMOSYNTHESIS, BILATERAL CLINICAL INFORMATION: Screening. Asymptomatic. COMPARISON: Mammography: This study is compared with prior exams dating back to 2018. TECHNIQUE: Digital breast tomosynthesis is performed in both the craniocaudal and mediolateral oblique views along with computer-aided detection (CAD). Synthesized 2D images are generated from the tomosynthesis. FINDINGS: The breasts are extremely dense, which lowers the sensitivity of mammography (ACR BI-RADS breast composition Category d). There are no significant masses, abnormal calcifications, or other abnormalities. MM/MM tomosynthesis screening BI IMPRESSION: No mammographic evidence of malignancy. ASSESSMENT: BI-RADS BI-RADS 1 - Negative RECOMMENDATION: Routine annual mammography screening. 1 year F/U This examination should not preclude the clinical evaluation of a suspicious palpable abnormality. This patient's information was entered into a reminder system with a target due date for their next mammogram.
== END 2023-12-07 10:34 | disposition home or self-care (01) ==
LOC: HO.MAMMO 10:33
PROVIDERS: Absent Provider Obstetrics & Gynecology; PCP Internal Medicine; Visit Provider Internal Medicine
DX: Z12.31 Encounter for screening mammogram for malignant neoplasm of breast (principal)
CPT/HCPCS: 77063; 77067

== ENCOUNTER → 2023-12-07 10:45 | Outpatient (BNV) | payer OTHER, SELFPAY | PROVIDERS: Absent Provider Obstetrics & Gynecology; PCP Internal Medicine; Visit Provider Radiology Diagnostic Radiology | DX: Z12.31 Encounter for screening mammogram for malignant neoplasm of breast (principal) | CPT/HCPCS: 77063; 77067 ==

== ENCOUNTER 2023-12-08 10:31 | Outpatient (AMB) | payer OTHER, SELFPAY ==
--- NOTE | 2023-12-08 10:29 | A.OFFPC_ITS ---
Intake Visit Reasons: 4 week follow up on new meds Allergies penicillin G Allergy (Unknown, Verified 12/08/23 10:56) Unknown penicillin G procaine Allergy (Unknown, Verified 12/08/23 10:56) Unknown penicillin V Allergy (Unknown, Verified 12/08/23 10:56) unknown latex glove Allergy (Unknown, Uncoded 12/08/23 10:56) Rash Penicillin G Proc & Benzathine Allergy (Unknown, Uncoded 12/08/23 10:56) Unknown Penicillium Notatum Allergy (Unknown, Uncoded 12/08/23 10:56) Unknown Medication List - Last Reconciled 12/08/23 by Dolores Jeronimo MD cetirizine (Zyrtec) 10 mg PO DAILY PRN cholecalciferol (vitamin D3) 125 mcg PO DAILY magnesium 400 mg PO DAILY multivitamin (Daily Multi-Vitamin tablet) 1 tab PO DAILY trazodone 50 mg PO BEDTIME PRN zinc acetate orally 2 TIMES A WEEK; Tobacco use date assessed: 10/11/23 Dental Screening Dental Screen Date: 12/08/23 Did you have a dental visit in the last 12 months?: Yes Did you have a dental problem in the last 6 months where you did not have access to dental care?: No Was dental information given to patient?: Patient has dentist HPI 4 week follow up on new meds HPI Details Tele health visit made with 53-year-old lady with anxiety disorder, here today for her follow-up. She was prescribed buspirone 5 mg to take 1 tablet 3 times a day, but has not started taking the medicine, states that she is hesitant to take it on a regular basis and she states that once the weather got better and the sun was out , she started feeling better, able to control her anxiety. She has been going to the gym to exercise every day, which also has helped improve her psyche. She was prescribed trazodone 50 mg per tablet to take at bedtime for insomnia, has taken it 2-3 times since last visit which has helped her sleep, but sometimes would wake up groggy in the morning if she takes it too late. She has been referred to [facility] in counseling for therapy, but has no luck in finding a therapist, does not feel like she needs to see one at present. [facility] Medical History (Updated 12/10/23 @ 16:04 by Dolores Jeronimo MD) Elevated TSH Hyperlipidemia Calcific tendinitis of right shoulder Dense breast tissue on mammogram Meniere syndrome Eustachian tube dysfunction Tendinopathy of right shoulder Surgical History S/p bilateral myringotomy with tube placement Hx of shoulder surgery Family History Mother No problems noted. Father No problems noted. Social History Housing: House Patient Tobacco Use Status: Never used Tobacco e-Cigarette/Vaping Use: Never Used service: No Current occupational status: employed Cognitive needs: No Hearing needs: No Vision needs: Yes Questionnaire PHQ-9 Over the last 2 weeks, how often have you been bothered by any of the following problems? 1. Little interest or pleasure in doing things: not at all 2. Feeling down, depressed, or hopeless: not at all 3. Trouble falling or staying asleep, or sleeping too much: not at all 4. Feeling tired or having little energy: not at all 5. Poor appetite or overeating: not at all 6. Feeling bad about yourself - or that you are a failure or have let yourself or your family down: not at all 7. Trouble concentrating on things, such as reading the newspaper or watching television: not at all 8. Moving or speaking so slowly that other people could have noticed. Or the opposite - being so fidgety or restless that you have been moving around a lot more than usual: not at all 9. Thoughts that you would be better off or of hurting yourself in some way: not at all Total score: 0 Depression Screening Interpretation: Negative Depression Screening Done: Yes 92645 - PHQ-9 Billing: Yes Source: Developed by Drs. Sean Jackson, Lorraine Owen, Jose Brown and colleagues, with an educational amarilis from [employer]. Thrive Questionnaire Date Thrive assessed: 10/11/23 GUANAKO-7 AMB Questionnaire GUANAKO-7 Date GUANAKO - 7 assessed: 12/08/23 Feeling nervous, anxious, or on edge: 0 = Not at all Not being able to stop or control worryin = Not at all Worrying too much about different things: 1 = Several days Trouble relaxin = Not at all Being so restless that it is hard to sit still: 0 = Not at all Becoming easily annoyed or irritable: 0 = Not at all Feeling afraid as if something awful might happen: 0 = Not at all Total GUANAKO-7 score (0-4 normal; 5-9 mild; 10-14 moderate; 15-21 severe): 1 Source: Developed by Drs. Sean Jackson, Lorraine Owen, Jose Brown and colleagues, with an educational amarilis from [employer]. GUANAKO-7 Assessment Billing GUANAKO-7 Assessment Tool: GUANAKO-7 Assessment 27875 Review of Systems Const All systems reviewed & are unremarkable except as noted in HPI and below Physical exam (Primary Care) Tobacco/Smoking Status: Tobacco use Status Tobacco use date assessed 10/11/23 12/08/23 10:30 Patient Tobacco Use Status Never used Tobacco 12/08/23 10:30 e-Cigarette/Vaping Use Never Used 12/08/23 10:30 PHQ-9: PHQ-9 Score PHQ-9: Total score 0 12/08/23 11:08 Depression Screening Interpretation: Negative Thrive Assessment: Date of Thrive Assessment Date Thrive assessed 10/11/23 12/08/23 10:30 Telehealth Telehealth Telehealth Platform: Other (please specify) Location of provider rendering services: practice address Location of patient: address on file Patient Identification confirmed using: Name, : Yes Telehealth method: video Patient verbally consented to treatment: Yes Patient verbally consented to billing insurance company: Yes Patient informed of any privacy concerns related to visit: Yes Minutes spent on Phone/Video with Pt.: 15 Assessment and Plan Assessment & Plan (1) Anxiety: Code(s): F41.9 - Anxiety disorder, unspecified Plan: Controlled with behavioral techniques and regular exercise. Does not feel the need to take any medication at present time. Continues to take trazodone 50 mg 1/2-1 tablet as needed only for acute episodes of insomnia. Coding Level of Care Code Tele Est Pt Level 3 (50736) Diagnoses Anxiety F41.9 Additional Codes GUANAKO-7 Assessment Billing - GUANAKO-7 Assessment Tool: GUANAKO-7 Assessment 66932 ([id number])
--- OUTSIDE RECORDS SUMMARY | 2023-12-08 10:33 | XMS_ITS | Continuity of Care Document ---
Author Organization [facility] Min Address [address] [place] [address]- Care Team Providers Care Field Marketing Manager Name Role Phone Ritchie Zimmer MD Primary Care Physician [facility]): 02/27/20 - 03/05/20 [facility] Adult [address] [place] [address]- [facility] Encounter Diagnosis Heel pain(Discharge Diagnosis) - 02/27/20 Attending Physician: Ritchie Zimmer MD Allergies, Adverse Reactions, Alerts Substance Reaction Severity Status penicillin rash Active Latex Active Sterile Talc Powder 1 rash Active 1to powder in latex glves Immunizations Given and Recorded Vaccine Date Status Refusal Reason Influenza Virus Vaccine (oldterm) 08/14/18 Recorde d Influenza Virus Vaccine (oldterm) 1 05/31/12 Given influenza virus vaccine, inactivated 05/11/18 Give n influenza virus vaccine, inactivated 2 05/24/17 Gi kojo influenza virus vaccine, inactivated 06/09/16 Give n influenza virus vaccine, inactivated 05/22/15 Give n influenza virus vaccine, inactivated 05/20/14 Give n Fluarix (oldterm) 05/16/11 Given Boostrix (Tdap) (oldterm) 02/24/11 Given FluLaval (oldterm) 3 08/16/10 Given 1Admin Note: FLUARIX 2Result Comment: [05/24/2017] [facility] [id number] 3Admin Note: dr. rajendra watts administered Medications albuterol CFC free 90 mcg/inh inhalation aerosol 180 mcg, 2, puffs, Inhalation, Every 4 hours, # 18 Gm, Refills 5, Tot. Refills 5, Maintenance, 09/24/19 11:00:00 EST, Inhaler, Route to Pharmacy Electronically, [id number], [facility]/pharmacy #[id number], 167.64, cm, 09/24/19 10:44:00 ES... Start Date: 09/24/19 Status: Ordered Magnesium Sulfate = 1 Gm, IV Infusion, Once, 0 Refills, Maintenance, 10/19/17 14:50:39 Start Date: 10/19/17 Status: Ordered Multivitamin Daily, 0 Refills, Maintenance, 09/24/19 10:47:00 EST Start Date: 09/24/19 Status: Ordered Zyrtec 10 mg oral tablet 1 tablet = 10 mg, By Mouth, Daily, # 30 tablet, 0 Refills, Maintenance, 01/28/14 13:56:46, Tablet Start Date: 01/28/14 Status: Ordered Problem List Condition Effective Dates Status Health Status Inform ant Allergic rhinitis(Confirmed) 01/28/14 Active Recurrent vaginal candidosis(Confirmed) Active Chronic low back pain(Confirmed) Active Diagnosis Diagnosis Type Effective Dates Health Status Clini orly Service Informant Heel pain Discharge Diagnosis 02/27/20 Social History Social History Type Response Smoking Status Former smoker entered on: 10/19/17 Sex
--- OUTSIDE RECORDS SUMMARY | 2023-12-08 10:33 | XMS_ITS | Continuity of Care Document ---
Author Organization [facility] Address [address] [place] [address]- Care Team Providers Care Customer Engagement Manager Name Role Phone Ritchie Zimmer MD Primary Care Physician [facility] 09[facility] - 10/01/19 [facility] Adult [address] [place] [address]- [facility] Encounter Diagnosis General medical exam(Discharge Diagnosis) - 09/24/19 Attending Physician: Ritchie Zimmer MD Allergies, Adverse [...] 1Admin Note: FLUARIX 2Result Comment: [05/24/2017] [facility] [id number] 3Admin Note: dr. rajendra watts administered Medications albuterol CFC free 90 mcg/inh inhalation aerosol 180 mcg, 2, puffs, Inhalation, Every 4 hours, # 18 Gm, Refills 5, Tot. Refills 5, Maintenance, 09/24/19 11:00:00 EST, Inhaler, Route to Pharmacy Electronically, [id number], [facility]/pharmacy #[id number], 167.64, cm, 09/24/19 10:44:00 ES... Start [...] Diagnosis Diagnosis Type Effective Dates Health Status Cl inical Service Informant General medical exam Discharge Diagnosis 09/24/19 Vital Signs Most recent to oldest [Reference Range]: 1 Height 167.64 cm (09/24/19 10:44 AM) Weight 66.6 kg (09/24/19 10:44 AM) Oxygen Saturation [94-100 %] 99 % (09/24/19 10:44 AM) Pulse Rate [55-90 bpm] 76 bpm (09/24/19 10:44 AM) Body Mass Index [18.5-24.99] 23.7 (09/24/19 10:44 AM) Blood Pressure [90-138/55-84 mm Hg] 104/ 62mm Hg (09/24/19 10:44 AM) Temperature [96.8-100.4 DegF] 98.3 DegF (09/24/19 10:44 AM) Mode of Delivery (Oxygen) Room air (09/24/19 10:44 AM) Blood pressure sites Arm, left (09/24/19 10:44 AM) Temperature Route Oral (09/24/19 10:44 AM) Weight Obtained Via Standing scale (09/24/19 10:44 AM) Social History Social History Type Response Smoking Status Former smoker entered on: 10/19/17 Sex
--- OUTSIDE RECORDS SUMMARY | 2023-12-08 10:33 | XMS_ITS | Continuity of Care Document ---
Author Organization [facility] Min Address [address] [place] [address]- Care Team Providers Care Boatswains Mate Name Role Phone Goran ALLISON, Ritchie Bobo Primary Care Physician [phone] [facility]s): 05/07/21 - 06/06/21 [facility] Adult [address] [place] [address]- Attending Physician: Admemerson, Day Admitting Physician: Admtr, Day Referring Physician: Admtr, Ar8 Allergies, Adverse Reactions, Alerts Substance Reaction Severity Status penicillin rash Active Latex Active Sterile Talc Powder 1 rash Active 1to powder in latex glves Immunizations Given and Recorded Vaccine Date Status Refusal Reason Influenza Virus Vaccine (oldterm) 05/23/20 Recorde d Influenza Virus Vaccine (oldterm) 08/14/18 Recorde d [...] Given 1Admin Note: FLUARIX 2Result Comment: [05/24/2017] [facility] [id number] 3Admin Note: dr. rajendra watts administered Medications doxycycline hyclate 100 mg oral capsule 2 capsule = 200 mg, By Mouth, Once, # 2 capsule, 0 Refills, Soft Stop, 05/07/21 14:15:00 EDT, [facility]/pharmacy #[id number], Partial fill upon patient request if the prescription is for a schedule II opioid drug., 167.64, cm, 05/07/21 13:55:00 EDT, Height Start Date: 05/07/21 Status: Ordered Magnesium Sulfate = 1 Gm, [...] candidosis(Confirmed) Active Chronic low back pain(Confirmed) Active Insomnia(Confirmed) Active Social History Social History Type Response Smoking Status Former smoker entered on: 10/19/17 Sex
--- OUTSIDE RECORDS SUMMARY | 2023-12-08 10:33 | XMS_ITS | Continuity of Care Document ---
Author Organization [facility] Address [address] [facility] [place] [address]- Care Team Providers Care Care Services Manager Name Role Phone Ritchie Zimmer MD Primary Care Physician Encounter 12/24/19 - 02/27/20 [facility] [address], [address] [place] [address]- [phone] Attending Physician: Ritchie Zimmer MD Admitting Physician: Ritchie Zimmer MD Referring Physician: Ritchie Zimmer MD Allergies, Adverse Reactions, [...] Given 1Admin Note: FLUARIX 2Result Comment: [05/24/2017] [facility] [id number] 3Admin Note: dr. rajendra watts administered Medications albuterol CFC free 90 mcg/inh inhalation aerosol 180 mcg, 2, puffs, Inhalation, Every 4 hours, # 18 Gm, Refills 5, Tot. Refills 5, Maintenance, 09/24/19 11:00:00 EST, Inhaler, Route to Pharmacy Electronically, [id number], [facility]/pharmacy #[id number], 167.64, cm, 09/24/19 10:44:00 ES... Start [...] candidosis(Confirmed) Active Chronic low back pain(Confirmed) Active Social History Social History Type Response Smoking Status Former smoker entered on: 10/19/17 Sex
--- OUTSIDE RECORDS SUMMARY | 2023-12-08 10:33 | XMS_ITS | Continuity of Care Document ---
Author Organization [facility] Address [address] [place] [address]- Care Team Providers Care Director Of Land Acquisition Name Role Phone Goran ALLISON, Ritchie Bobo Primary Care Physician [facility]counter [facility] Date(s): 02/27/20 - 03/28/20 [facility] Adult [address] [place] [address]- [facility] Attending Physician: Admemerson, Karl8 Admitting Physician: AdmtrDay Referring Physician: Admtr, Ar8 Allergies, Adverse Reactions, [...] Given 1Admin Note: FLUARIX 2Result Comment: [05/24/2017] [facility] [id number] 3Admin Note: dr. rajendra watts administered Medications albuterol CFC free 90 mcg/inh inhalation aerosol 180 mcg, 2, puffs, Inhalation, Every 4 hours, # 18 Gm, Refills 5, Tot. Refills 5, Maintenance, 09/24/19 11:00:00 EST, Inhaler, Route to Pharmacy Electronically, [id number], [facility]/pharmacy #[id number], 167.64, cm, 09/24/19 10:44:00 [...]
--- OUTSIDE RECORDS SUMMARY | 2023-12-08 10:33 | XMS_ITS | Continuity of Care Document ---
Author Organization [facility] Address [address] [place] [address]- Care Team Providers Care Drill Runner Helper Name Role Phone Ritchie Zimmer MD Primary Care Physician Encounter [facility] Date(s): 09/25/20 - 10/02/20 [facility] Adult [address] [place] [address]- Encounter Diagnosis General medical exam(Discharge Diagnosis) - 09/25/20 Insomnia(Discharge Diagnosis) - 09/25/20 Ocular migraine(Discharge Diagnosis) - 09/25/20 Attending Physician: Ritchie Zimmer MD Allergies, Adverse [...] Given 1Admin Note: FLUARIX 2Result Comment: [05/24/2017] [facility] [id number] 3Admin Note: dr. rajendra watts administered Medications Magnesium Sulfate = 1 Gm, IV Infusion, [...] Chronic low back pain(Confirmed) Active Insomnia(Confirmed) Active Diagnosis Diagnosis Type Effective Dates Health Status Cl inical Service Informant General medical exam Discharge Diagnosis 09/25/20 Insomnia Discharge Diagnosis 09/25/20 Ocular migraine Discharge Diagnosis 09/25/20 Vital Signs Most recent to oldest [Reference Range]: 1 Height 167.64 cm (09/25/20 8:46 AM) Weight 65.0 kg (09/25/20 8:46 AM) Body Mass Index [18.5-24.99] 23.13 (09/25/20 8:46 AM) Weight Obtained Via Standing scale (09/25/20 8:46 AM) Social History Social History Type Response Smoking Status Former smoker entered on: 10/19/17 Sex
--- OUTSIDE RECORDS SUMMARY | 2023-12-08 10:33 | XMS_ITS | Continuity of Care Document ---
Author Organization [facility] lt Address [address] [place] [address]- Care Team Providers Care Steel Grinder Name Role Phone Goran ALLISON, Ritchie Bobo Primary Care Physician [facility]s): 05/07/21 - 06/06/21 [facility] Adult [address] [place] [address]- Allergies, Adverse Reactions, Alerts Substance Reaction Severity [...] FLUARIX 2Result Comment: [05/24/2017] [facility] [id number] 3Admin Note: dr. rajendra watts administered Medications doxycycline hyclate 100 mg oral capsule 2 capsule = 200 mg, By Mouth, Once, # 2 capsule, 0 Refills, Soft Stop, 05/07/21 14:15:00 EDT, [facility]/pharmacy #[id number], Partial fill upon patient request if the [...]
--- OUTSIDE RECORDS SUMMARY | 2023-12-08 10:33 | XMS_ITS | Continuity of Care Document ---
Author Organization [facility] Min Address [address] [place] [address]- Care Team Providers Care Exhaust Emissions Inspector Name Role Phone Goran ALLISON, Ritchie Bobo Primary Care Physician [phone] [facility]s): 05/07/21 - 05/14/21 [facility] Adult [address] [place] [address]- Encounter Diagnosis Tick bite of foot(Discharge Diagnosis) - 05/07/21 Attending Physician: Not on Staff, Attending MD Allergies, Adverse Reactions, Alerts Substance Reaction [...] Given 1Admin Note: FLUARIX 2Result Comment: [05/24/2017] [facility][note 3] [id number] 3Admin Note: dr. rajendra watts administered Medications doxycycline hyclate 100 mg oral capsule 2 capsule = 200 mg, By Mouth, Once, # 2 capsule, 0 Refills, Soft Stop, 05/07/21 14:15:00 EDT, [facility]/pharmacy #[id number], Partial fill upon patient request [...] Dates Health Status Cl inical Service Informant Tick bite of foot Discharge Diagnosis 05/07/21 Vital Signs Most recent to oldest [Reference Range]: 1 Height 167.64 cm (05/07/21 1:55 PM) Temperature [96.8-100.4 DegF] 97.5 DegF (05/07/21 1:55 PM) Temperature Route Oral (05/07/21 1:55 PM) Social History Social History Type Response Smoking Status Former smoker entered on: 10/19/17 Sex
--- OUTSIDE RECORDS SUMMARY | 2023-12-08 10:33 | XMS_ITS | Continuity of Care Document ---
Author Organization [facility] Address [address] [place] [address]- Care Team Providers Care Morning Babysitter Name Role Phone Ritchie Zimmer MD Primary Care Physician [phone] [facility]counter [facility] Date(s): 09/25/20 - 10/25/20 [facility] Adult [address] [place] [address]- Attending Physician: AdmDay norman Admitting Physician: AdmDay norman Referring Physician: [id number] Allergies, Adverse Reactions, Alerts Substance Reaction Severity [...] 1Admin Note: FLUARIX 2Result Comment: [05/24/2017] [facility][note 2] [id number] 3Admin Note: dr. rajendra watts administered [...]
== END 2023-12-08 11:20 | disposition home or self-care (01) ==
PROVIDERS: PCP Internal Medicine; Visit Provider Internal Medicine
DX: F41.9 Anxiety disorder, unspecified (principal)
CPT/HCPCS: 99213

== ENCOUNTER 2023-12-30 10:07 | Outpatient (REF) | payer OTHER, SELFPAY ==
[2024-01-01 03:29] LABS: Follicle Stimulating Hormone 48.7 mIU/mL
== END 2023-12-30 10:08 | disposition home or self-care (01) ==
LOC: HO.LAB 10:07
PROVIDERS: PCP Internal Medicine; Visit Provider Obstetrics & Gynecology
DX: N95.1 Menopausal and female climacteric states (principal)
CPT/HCPCS: 36415; 83001

== ENCOUNTER 2024-06-17 08:02 | Outpatient (AMB) | payer OTHER, SELFPAY ==
[2024-06-17 08:04] VITALS: BP 118/72; PULSE 78; TEMP 36.9; O2SAT 98; BMI 26.6
--- NOTE | 2024-06-17 08:04 | MHC.OFFWIV ---
Intake Vital Signs 06/17/24 08:04 Height 5 ft 6 in Weight 165 lb BMI 26.6 BP 118/72 Blood Pressure Location Lt brachial Position Sitting Pulse 78 Pulse Source Pulse Oximeter Temp 98.4 F Temp Source Oral Pulse Oximetry (%) 98 Intake Visit Reasons: EP Cough, lung pain, fatigue Intake Note: pt is here for cough, lung pain with fatigue day 6 Patient Tobacco Use Status: Never used Tobacco Allergies penicillin G Allergy (Unknown, Verified 06/17/24 08:04) Unknown penicillin G procaine Allergy (Unknown, Verified 06/17/24 08:04) Unknown penicillin V Allergy (Unknown, Verified 06/17/24 08:04) unknown latex glove Allergy (Unknown, Uncoded 12/08/23 10:56) Rash Penicillin G Proc & Benzathine Allergy (Unknown, Uncoded 12/08/23 10:56) Unknown Penicillium Notatum Allergy (Unknown, Uncoded 12/08/23 10:56) Unknown Do you need a note to return to daycare/school/sports/work: No HPI EP Cough, lung pain, fatigue HPI Details This note is constructed using voice recognition software. While every effort has been made to ensure accuracy, school transportation supervisor errors may have been included. The patient is a 54 year old female who presents to the clinic today with cough, congestion, and fatigue for the past 6 days. She denies fever, chills, dyspnea. She does report that she has had an albuterol inhaler in the past, but it is several years and would like to have a new 1 on hand. She has been taking Mucinex, Flonase, increased hydration, and generally is feeling better since symptom onset. She has taken 2 COVID tests at home which have been negative. [facility] Medical History (Updated 12/10/23 @ 16:04 by Dolores Jeronimo MD) Elevated TSH Hyperlipidemia Calcific tendinitis of right shoulder Dense breast tissue on mammogram Meniere syndrome Eustachian tube dysfunction Tendinopathy of right shoulder Surgical History S/p bilateral myringotomy with tube placement Hx of shoulder surgery Family History Mother No problems noted. Father No problems noted. Social History Housing: House Patient Tobacco Use Status: Never used Tobacco e-Cigarette/Vaping Use: Never Used service: No Current occupational status: employed Cognitive needs: No Hearing needs: No Vision needs: Yes Review of Systems Const All systems reviewed & are unremarkable except as noted in HPI and below Physical Exam Vital Signs: Last Vital Signs Temp 98.4 F 06/17/24 08:04 Pulse 78 06/17/24 08:04 BP 118/72 06/17/24 08:04 Pulse Ox 98 06/17/24 08:04 BMI result Body Mass Index 26.6 Const General: cooperative, healthy appearing, comfortable and no acute distress Orientation/consciousness: patient oriented x3 Limitations: no limitations HEENT Head: Yes normal to inspection Ears: hearing grossly normal bilaterally, external ears normal and TM's normal bilaterally General nose exam: Normal external nose present, Normal nares present and No nasal discharge present Face and sinus: Yes normal facial exam and Yes sinuses nontender Mouth: Normal oral and palatal mucosa present and moist mucous membranes Throat: Yes tonsils normal, Yes uvula midline and Yes posterior oropharynx abnormal (Erythema) Eyes General: appearance normal, both eyes and all related structures Neck Neck: Yes normal visual inspection Resp Effort & Inspection: normal respiratory effort, able to speak in complete sentences, Actively coughing, no respiratory distress, not tachypneic, no tripod positioning and no use of accessory muscles Auscultation: clear to auscultation bilaterally Cardio Jugular venous distension: no JVD Rate: regular rate Rhythm: regular rhythm Heart sounds: S1 normal heart sound present, S2 normal heart sound present, no click, no gallops, no murmurs and no rubs Skin General skin exam: no rashes or lesions noted, elasticity normal and turgor normal Neuro General: patient oriented x3 Extrem General: Yes normal to inspection and Yes no clubbing, cyanosis or edema Assessment & Plan Assessment & Plan (1) URI (upper respiratory infection): Code(s): J06.9 - Acute upper respiratory infection, unspecified Qualifiers: URI type: unspecified URI Qualified Code(s): J06.9 - Acute upper respiratory infection, unspecified Plan: Viral swab obtained to rule out Covid based on symptoms. Advised mask wearing while symptomatic and quarantine per current CDC guidelines. Reviewed at home support methods including hydration, humidification, vix vapor rub, sinus rinse. Discussed treatment with antiviral therapy for covid with paxlovid including appropriate use and side effects, and need to start medication within 5 day of symptom onset, preferably within 48 hours of symptom onset. Patient is not a candidate due to timeline since onset of symptoms. Discussed symptomatic management, we will try a prednisone burst, as well as refill of albuterol inhaler which had previously . Advised follow up with worsening symptoms such as dyspnea at rest, which would require emergent evaluation. Orders: Orders SARS-CoV2/FLU/RSV Today J06.9 - Acute upper respiratory infection, unspecified Medications: New prednisone 40 mg (2 x 20 mg) PO DAILY 3 days 6 tabs 0RF albuterol sulfate 90 mcg/actuation 1 - 2 puffs inhalation QID PRN 6.7 grams 0RF Shortness Of Breath Or Wheezing Coding Level of Care Code Est Pt Level 3 (87612) Diagnoses Upper respiratory tract infection, unspecified type J06.9 URI type: unspecified URI
== END 2024-06-17 09:20 | disposition home or self-care (01) ==
PROVIDERS: PCP Internal Medicine; Visit Provider Registered Nurse
DX: J06.9 Acute upper respiratory infection, unspecified (principal)

== ENCOUNTER 2024-06-17 08:02 | Outpatient (REF) | payer OTHER, SELFPAY ==
[2024-06-17 13:05] LABS: Influenza A PCR NEGATIVE (Negative); Influenza B PCR NEGATIVE (Negative); Resp Syncy Virus RNA Qual PCR NEGATIVE (Negative); SARS COV2 PCR INHOUSE NEGATIVE (Negative)
== END 2024-06-17 08:03 | disposition home or self-care (01) ==
LOC: HO.LNP 08:02
PROVIDERS: PCP Internal Medicine; Visit Provider Registered Nurse
DX: J06.9 Acute upper respiratory infection, unspecified (principal)
CPT/HCPCS: 0241U

== ENCOUNTER 2024-06-25 13:13 | Outpatient (AMB) | payer OTHER, SELFPAY ==
[2024-06-25 13:33] VITALS: BP 110/80; PULSE 79; TEMP 36.9; O2SAT 99; BMI 25.7
--- NOTE | 2024-06-25 13:33 | AM.OFFWIN_ITS ---
Intake Vital Signs 06/25/24 13:33 Height 5 ft 6 in Weight 159 lb BMI 25.7 BP 110/80 Blood Pressure Location Lt brachial Position Sitting Pulse 79 Pulse Source Pulse Oximeter Temp 98.4 F Temp Source Oral Pulse Oximetry (%) 99 Oxygen Delivery Method Room Air Intake Visit Reasons: EP-f/up from 06/17/24 still not feeling well Intake Note: Patient here for cough that has been present for about 14days and was put on prednisone which she finished and is still having cough. Patient Tobacco Use Status: Never used Tobacco Allergies penicillin G Allergy (Unknown, Verified 06/25/24 13:34) Unknown penicillin G procaine Allergy (Unknown, Verified 06/25/24 13:34) Unknown penicillin V Allergy (Unknown, Verified 06/25/24 13:34) unknown latex glove Allergy (Unknown, Uncoded 06/25/24 13:34) Rash Penicillin G Proc & Benzathine Allergy (Unknown, Uncoded 06/25/24 13:34) Unknown Penicillium Notatum Allergy (Unknown, Uncoded 06/25/24 13:34) Unknown HPI HPI Comments History of Present Illness Details 54 y/o female patient who presents to [facility] walk in clinic with c/o cough and fatigue x 14 days. Pt was last seen here on 06/17 and was prescribed Prednisone. Reports some improvement but not feeling 100% better. Reports still coughing. [facility] Medical History (Updated 12/10/23 @ 16:04 by Dolores Jeronimo MD) Elevated TSH Hyperlipidemia Calcific tendinitis of right shoulder Dense breast tissue on mammogram Meniere syndrome Eustachian tube dysfunction Tendinopathy of right shoulder Surgical History S/p bilateral myringotomy with tube placement Hx of shoulder surgery Family History Mother No problems noted. Father No problems noted. Social History Housing: House Patient Tobacco Use Status: Never used Tobacco e-Cigarette/Vaping Use: Never Used service: No Current occupational status: employed Cognitive needs: No Hearing needs: No Vision needs: Yes Review of Systems Const All systems reviewed & are unremarkable except as noted in HPI and below Physical Exam Vital Signs: Last Vital Signs Temp 98.4 F 06/25/24 13:33 Pulse 79 06/25/24 13:33 BP 110/80 06/25/24 13:33 Pulse Ox 99 06/25/24 13:33 Oxygen Delivery Method Room Air 06/25/24 13:33 BMI result Body Mass Index 25.7 Const General: cooperative and no acute distress Orientation/consciousness: patient oriented x3 HEENT Head: Yes normocephalic Ears: external ears normal and TM's normal bilaterally General nose exam: Normal external nose present Face and sinus: Yes sinuses nontender Mouth: moist mucous membranes Resp Effort & Inspection: normal respiratory effort and able to speak in complete sentences Auscultation: clear to auscultation bilaterally, no crackles, no rales, no rhonchi and no wheezes Cardio Heart sounds: S1 normal heart sound present and S2 normal heart sound present Neuro General: patient oriented x3 Psych Speech and movement: Normal speech and movement present Assessment & Plan Assessment & Plan (1) URI (upper respiratory infection): Code(s): J06.9 - Acute upper respiratory infection, unspecified Qualifiers: URI type: unspecified viral URI Qualified Code(s): J06.9 - Acute upper respiratory infection, unspecified Plan: Exam normal today. Lungs CTA. Possibly viral vs Bacterial. (2) Cough: Code(s): R05.9 - Cough, unspecified Qualifiers: Cough type: subacute Qualified Code(s): R05.2 - Subacute cough Plan: OTC cough remedies. Hydrate with warm fluids and honey. Medications: New benzonatate 100 mg PO TID 90 caps 0RF R05.2 - Subacute cough Coding Level of Care Code Est Pt Level 3 (37505) Diagnoses Viral upper respiratory tract infection J06.9 URI type: unspecified viral URI Subacute cough R05.2 Cough type: subacute Time Spent (min) 15
== END 2024-06-25 14:22 | disposition home or self-care (01) ==
PROVIDERS: PCP Internal Medicine; Visit Provider Nurse Practitioner Family
DX: J06.9 Acute upper respiratory infection, unspecified (principal); R05.2 Subacute cough

== ENCOUNTER 2024-08-06 10:46 | Outpatient (AMB) | payer OTHER, SELFPAY ==
[2024-08-06 10:53] VITALS: BP 92/68; PULSE 75; O2SAT 97; BMI 25.8
--- NOTE | 2024-08-06 10:53 | A.OFFPC_ITS ---
Vital Signs 08/06/24 10:53 Height 5 ft 6 in Weight 160 lb BMI 25.8 BP 92/68 Blood Pressure Location Lt brachial Position Sitting Pulse 75 Pulse Source Pulse Oximeter Pulse Oximetry (%) 97 Oxygen Delivery Method Room Air Intake Visit Reasons: Annual PE Intake Note: Pt is here today foe her PE: Last mammogram 12/07/23, colonoscopy 04/21/2020, papsmear 11/20/2019 Allergies penicillin G Allergy (Unknown, Verified 08/11/24 23:01) Unknown penicillin G procaine Allergy (Unknown, Verified 08/11/24 23:01) Unknown penicillin V Allergy (Unknown, Verified 08/11/24 23:01) unknown latex glove Allergy (Unknown, Uncoded 08/11/24 23:01) Rash Penicillin G Proc & Benzathine Allergy (Unknown, Uncoded 08/11/24 23:01) Unknown Penicillium Notatum Allergy (Unknown, Uncoded 08/11/24 23:01) Unknown Medication List - Last Reconciled 08/11/24 by Dolores Jeronimo MD albuterol sulfate 90 mcg/actuation 1 - 2 puffs inhalation QID PRN cetirizine (Zyrtec) 10 mg PO DAILY PRN cholecalciferol (vitamin D3) 125 mcg PO DAILY magnesium 400 mg PO DAILY multivitamin (Daily Multi-Vitamin tablet) 1 tab PO DAILY zinc acetate orally 2 TIMES A WEEK; Tobacco use date assessed: 08/06/24 Dental Screening Dental Screen Date: 08/06/24 Did you have a dental visit in the last 12 months?: Yes Did you have a dental problem in the last 6 months where you did not have access to dental care?: No Was dental information given to patient?: Patient has dentist HPI Annual PE HPI Details - 54-year-old female presenting for her physical exam.. - Blood pressure previously elevated; cu rrently well-controlled with lifestyle modifications. - History of polyp removal during a colo noscopy in 2019, unclear records; potential follow-up colonoscopy needed depending on results. - has been having intermittent hot flash es and joint pain; recent return of menstrual cycle suggests not fully menopausal. - Plantar fasciitis diagnosed recently, managed with stretching exercises and custom orthotics; considering cortisone injection due to persistent pain. - Diagnosed with calcific tendonopathy; considering less invasive procedures instead of surgery for management. [facility] Medical History History of Meniere's syndrome Elevated TSH Hyperlipidemia Calcific tendinitis of right shoulder Dense breast tissue on mammogram Tendinopathy of right shoulder Surgical History S/p bilateral myringotomy with tube placement Hx of shoulder surgery Family History Mother No problems noted. Father No problems noted. Social History Housing: House Patient Tobacco Use Status: Never used Tobacco e-Cigarette/Vaping Use: Never Used service: No Current occupational status: employed Cognitive needs: No Hearing needs: No Vision needs: Yes Female Reproductive History Menstrual Date of last pap smear: 11/19/21 Date of Mammogram: 12/07/23 Other: Currently being followed at [facility]'s Dr. Rj Trialed scale Questionnaire Thrive Questionnaire Date Thrive assessed: 10/11/23 AUDIT C Alcohol Use Questionnaire (AUDIT-C) 1. How often do you have a drink containing alcohol?: 2-4 times a month 2. How many drinks containing alcohol do you have on a typical day when you are drinking?: 1 or 2 3. How often do you have six or more drinks on one occasion?: Never Total Score: 2 GUANAKO-7 AMB Questionnaire GUANAKO-7 Date GUANAKO - 7 assessed: 12/08/23 Source: Developed by Drs. Sean Jackson, Lorraine Owen, Jose Brown and colleagues, with an educational amarilis from [employer]. Review of Systems Const Denies headache(s) Eyes Reports no additional complaints ENT Reports no additional complaints, Reports Normal hearing present and Denies headache(s) Card Reports no additional complaints Resp Reports no additional complaints GI Denies abdominal pain and Denies change in bowel habits Reports no additional complaints Musc Denies back pain, Reports arthralgias, Denies muscle weakness, Reports stiffness and Denies tingling Skin/Breast Denies breast swelling, Denies breast pain, Denies breast mass, Denies lesions and Denies rash Neuro Reports Normal hearing present, Denies behavioral changes, Denies headache(s) and Denies tingling Psych Reports no additional complaints and Denies behavioral changes Endo Reports no additional complaints Carlitos/Lymph Reports no additional complaints Aller/Immun Reports no additional complaints Physical exam (Primary Care) Vital Signs: Last Vital Signs Pulse 75 08/06/24 10:53 BP 92/68 08/06/24 10:53 Pulse Ox 97 08/06/24 10:53 Oxygen Delivery Method Room Air 08/06/24 10:53 BMI result Body Mass Index 25.8 Tobacco/Smoking Status: Tobacco use Status Tobacco use date assessed 08/06/24 08/06/24 10:54 Patient Tobacco Use Status Never used Tobacco 08/06/24 10:54 e-Cigarette/Vaping Use Never Used 08/06/24 10:54 Thrive Assessment: Date of Thrive Assessment Date Thrive assessed 10/11/23 08/06/24 10:54 Const General: no acute distress and alert Nutritional Appearance: average body habitus Orientation/consciousness: patient oriented x3 HENMT Head: Yes normocephalic Ears: hearing grossly normal bilaterally, external ears normal, TM's normal bilaterally and EAC's normal General nose exam: Normal external nose present Face and sinus: Yes face symmetric Mouth: Normal oral and palatal mucosa present and moist mucous membranes abnormal Eyes General: appearance normal, both eyes and all related structures Conjunctivae: conjunctivae normal Sclerae: sclerae normal Pupils: Equal, round and reactive pupils present EOM: EOMs intact bilaterally Neck Neck: Yes full ROM, Yes no lymphadenopathy and Yes supple Thyroid: Thyroid normal Chest Chest palpation & inspection: normal inspection of the chest Breast/axilla palpation: normal palpation of the breasts Resp Effort & Inspection: normal respiratory effort and able to speak in complete sentences Auscultation: clear to auscultation bilaterally Cardio Jugular venous distension: no JVD Palpation: normal PMI Rate: regular rate Rhythm: regular rhythm Heart sounds: S1 normal heart sound present and S2 normal heart sound present Bruits: no abdominal aortic bruits GI Inspection: Yes normal to inspection Palpation (GI): No Abdominal aortic bruit present, Soft to palpation, nontender, no guarding and no masses Auscultation: normal bowel sounds General: Yes no CVA tenderness and Yes deferred (sees for her routine Pap and pelvic exam) Back/Spine/Pelvis Back: no CVA tenderness and No back tenderness Cervical Spine: cervical ROM normal Thoracic/Lumbar Spine: thoracic and lumbar spine normal to inspection Pelvis: no pain with anterior-posterior compression Skin General skin exam: no rashes or lesions noted Neuro General: patient oriented x3, gait normal, tone normal, moves all extremities and CN's II-XI intact bilaterally Cranial nerves: Yes Equal, round and reactive pupils present and Yes Normal hearing present Cognition (Neuro): normal cognition Gait exam (Neuro): Normal gait present Extrem General: Yes normal to inspection, Yes full ROM, Yes no joint enlargement, Yes no clubbing, cyanosis or edema, Yes no calf tenderness and Yes normal gait Psych Appearance: grossly normal and well kempt Mental Status: mental status grossly normal Speech and movement: Normal speech and movement present Affect: normal affect Attitude: cooperative Thought process: Normal thought process present Thought content: Normal thought content present Coding Level of Care Code Est Pt Prev Care 40-64y(99301) Diagnoses Annual visit for general adult medical examination with abnormal findings Z00.01 Calcific tendinitis of right shoulder M75.31 Pure hypercholesterolemia E78.00 Hyperlipidemia type: pure hypercholesterolemia Elevated TSH R79.89 Encounter for counseling regarding advance directives Z71.89 Assessment & Plan Assessment & Plan (1) Annual visit for general adult medical examination with abnormal findings: Code(s): Z00.01 - Encounter for general adult medical examination with abnormal findings Plan: Will check appropriate labs. Continue regular dental visit every 6 months and regular eye exams, at least every 2 years. Take adequate calcium in diet and vitamin-D 3 at 2000 IU per cap once a day, in addition to weight-bearing exercises to help maintain good muscle tone and weight control. Instructed to do self-breast exam, and continue with yearly mammogram, . Had her initial colonoscopy screening with Dr. Washington with negative findings per patient, not yet due for repeat colonoscopy. Has had COVID vaccines in the past does not want to get the booster, up-to-date with her flu vaccine shingles vaccine and Tdap (2) Calcific tendinitis of right shoulder: Code(s): M75.31 - Calcific tendinitis of right shoulder Category: Medical Plan: Currently followed by Orthopedics (3) Hyperlipidemia: Code(s): E78.5 - Hyperlipidemia, unspecified Category: Medical Qualifiers: Hyperlipidemia type: pure hypercholesterolemia Qualified Code(s): E78.00 - Pure hypercholesterolemia, unspecified Plan: History of elevated LDL cholesterol last visit, was importance of following healthy diet and getting regular exercise. Ordered a repeat another fasting lipid panel (4) Elevated TSH: Code(s): R79.89 - Other specified abnormal findings of blood chemistry Category: Medical Plan: Ordered repeat TSH and free T4. (5) Encounter for counseling regarding advance directives: Code(s): Z71.89 - Other specified counseling Plan: Initiated the conversation about Advanced Directives. Advanced Directives help patients prepare for current and future decisions about their medical treatment and place of care. Discussed with patient that it is a process where a patients current condition and prognosis are reviewed, their wishes for information regarding their illness are elicited, and likely medical dilemmas are presented and options discussed. Healthcare proxy form completed today. The form can be amended as needed, reviewed yearly and make changes as needed Orders: Orders Alanine Aminotransferase 08/09/24 E78.00 - Pure hypercholesterolemia, unspecified, M75.31 - Calcific tendinitis of right shoulder, R79.89 - Other specified abnormal findings of blood chemistry, Z00.01 - Encounter for general adult medical examination with abnormal findings, Z71.89 - Other specified counseling Aspartate Amino Transferase 08/09/24 E78.00 - Pure hypercholesterolemia, unspecified, M75.31 - Calcific tendinitis of right shoulder, R79.89 - Other specified abnormal findings of blood chemistry, Z00.01 - Encounter for general adult medical examination with abnormal findings, Z71.89 - Other specified counseling Basic Metabolic Panel Fasting 08/09/24 E78.00 - Pure hypercholesterolemia, unspecified, M75.31 - Calcific tendinitis of right shoulder, R79.89 - Other specified abnormal findings of blood chemistry, Z00.01 - Encounter for general adult medical examination with abnormal findings, Z71.89 - Other specified counseling Vitamin B12 and Folate 08/09/24 E78.00 - Pure hypercholesterolemia, unspecified, M75.31 - Calcific tendinitis of right shoulder, R79.89 - Other specified abnormal findings of blood chemistry, Z00.01 - Encounter for general adult medical examination with abnormal findings, Z71.89 - Other specified counseling TSH reflex Free T4 08/09/24 E78.00 - Pure hypercholesterolemia, unspecified, M75.31 - Calcific tendinitis of right shoulder, R79.89 - Other specified abnormal findings of blood chemistry, Z00.01 - Encounter for general adult medical examination with abnormal findings, Z71.89 - Other specified counseling Lipid Panel 08/09/24 E78.00 - Pure hypercholesterolemia, unspecified, M75.31 - Calcific tendinitis of right shoulder, R79.89 - Other specified abnormal findings of blood chemistry, Z00.01 - Encounter for general adult medical examination with abnormal findings, Z71.89 - Other specified counseling Vitamin D 25-OH Total 08/09/24 E78.00 - Pure hypercholesterolemia, unspecified, M75.31 - Calcific tendinitis of right shoulder, R79.89 - Other specified abnormal findings of blood chemistry, Z00.01 - Encounter for general adult medical examination with abnormal findings, Z71.89 - Other specified counseling
== END 2024-08-06 11:50 | disposition home or self-care (01) ==
PROVIDERS: PCP Internal Medicine; Visit Provider Internal Medicine
DX: Z00.01 Encounter for general adult medical examination with abnormal findings (principal); M75.31 Calcific tendinitis of right shoulder; E78.00 Pure hypercholesterolemia, unspecified; R79.89 Other specified abnormal findings of blood chemistry; Z71.89 Other specified counseling

== ENCOUNTER 2024-08-09 08:54 | Outpatient (REF) | payer OTHER, SELFPAY ==
[2024-08-09 10:49] LABS: Alanine Aminotransferase 26 U/L (0-31); Anion Gap 9 (12-20); Aspartate Amino Transferase 24 U/L (5-31); Blood Urea Nitrogen 17 mg/dL (9-16); Calcium 8.5 mg/dL (8.4-10.2); Carbon Dioxide 30 mmol/L (22-29); Chloride 104 mmol/L (96-108); Cholesterol 227 mg/dL (<200); Estimated Glomerular Filt Rate > 60; Glucose Fasting 82 mg/dL (60-99); HDL Cholesterol 59 mg/dL (>40); LDL Cholesterol Calculated 154 mg/dL (<100); Potassium 3.5 mmol/L (3.3-5.1); Sodium 139 mmol/L (135-145); Triglycerides 70 mg/dL (<150)
[2024-08-09 11:13] LABS: Folate 17.6 ng/mL (> or = 4.0); Vitamin B12 970 pg/mL (200-900)
== END 2024-08-09 08:55 | disposition home or self-care (01) ==
LOC: HO.HMGCLDS 08:54
PROVIDERS: PCP Internal Medicine; Visit Provider Internal Medicine
DX: Z00.01 Encounter for general adult medical examination with abnormal findings (principal); R79.89 Other specified abnormal findings of blood chemistry; E78.00 Pure hypercholesterolemia, unspecified; Z71.89 Other specified counseling; M75.31 Calcific tendinitis of right shoulder
CPT/HCPCS: 36415; 80048; 80061; 82306; 82607; 82746; 84443; 84450; 84460

== ENCOUNTER 2024-12-11 10:03 | Outpatient (REF) | payer OTHER, SELFPAY ==
--- OUTSIDE RECORDS SUMMARY | 2024-12-11 11:02 | XMS_ITS ---
Author Organization [facility] Address [address] [place] [address] [place], [place] [address] Care Team Providers Care Drier Transfer Car Operator Name Role Phone Phani ALLISON, Dolores Dumont Primary Care Provider Un available Opal Steve Unavailable [phone] REASON FOR VISIT cx 10/21 Encounters Encounter Location Date Provider Diagnosis [facility] Nain [place] [address] [facility] [place] [address] 10/21/2024 Opal Steve Plan Of Treatment No Information Progress Notes * Master SINDOB: 1 (54 yo F)Acc No.[id number]:10/21/2024 Patient:?Master SIN :1970???Age:54 Y???Sex:Female Address:[address] [place] [address] [place], [address] * true * Date:? Generated for Printi ng/Cathryn/eTransmitting on:?12/11/2024 11:02 AM EDT
--- OUTSIDE RECORDS SUMMARY | 2024-12-11 11:02 | XMS_ITS ---
Author Organization [facility] Address [address] [place] [address] [place] [address] Care Team Providers Care Rn Discharge Name Role Phone Phani ALLISON, Dolores Dumont Primary Care Provider Un available Opal Steve [phone] Encounters Encounter Location Date Provider Diagnosis [facility] Nain [place]ley [address] [place] [address] 10/25/2024 Opal Steve Plan Of Treatment No Information Progress Notes * Ruby SINDOB: 1 (54 yo F)Acc No.[id number]:10/25/2024 Progress Notes Patient:?LEORuby WINKLER Provider:?Opal Steve DPM :1970???Age:54 Y???Sex:Female D ate:10/25/2024 Address:[address] [place] [address] [address] [id number] Pcp:Jonnathan Ruiz Subjective: * Chief Complaints: * ??? * Medical History:? Objective: * Vitals:? Assessment: Plan: * Treatment: * Images: * The named appointment provid er may or may not be the originator of this progress note, and it is not deemed complete until electronically signed by the appointment provider. Sign off status: Pending * Provider:?Opal Steve DPM Date:? Generated for Printi ng/Faxing/eTransmitting on:?12/11/2024 11:02 AM EDT
--- OUTSIDE RECORDS SUMMARY | 2024-12-11 11:02 | XMS_ITS | Patient Health Record ---
Author Organization [facility] Marily Tran Address [address] [place] [address] Care Team Providers Care Set Up / Operator Name Role Phone Phani ALLISON, Dolores Dumont Primary Care Provider Un available CesarOpal flores Unavailable [phone] Allergies Allergen (clinical drug ingredient) Drug/Non Drug Allergy documented on EMR Reaction Allergy Type Onset Date Status Penicillin Unknown Drug Allergy Active Reason For Referral No Information Medications Medication SIG (Take, Route, Frequency, Duration) Notes Start Date End Date Status Night Splint AFO - L1930 1 wear at rest for 30 days Active ZyrTEC Active Vitamin D3 Active Fish Oil Active Vitamin C Active Magnesium Glycinate Active Medrol amparo 4mg as directed orally a s directed for 6 days 07/22/2024 Active Social History Tobacco Use: Social History Observation Description Date Details (start date - stop date) Never Smoker NA - NA Tobacco use other than smoking: Question Answer Notes Are you an other tobacco user? No Tobacco Control (Standard) Question Answer Notes Tobacco use: Nonsmoker Additional Findings: Tobacco non-user Current no nsmoker AUDIT-C (Standard) Question Answer Notes Did you have a drink containing alcohol in the p ast year? No Points 0 Interpretation Negative Problems Problem Type SNOMED Code ICD Code Onset Dates Problem Status W/U Status Risk Notes Problem Plantar fasciitis (485219429) Plantar fasciitis (M72.2) Active confirmed Resistant to previous conservative treatment Problem Plantar fasciitis of left foot (27118655462552 101) Plantar fasciitis of left foot (M72.2) Active confirmed Problem Interstitial myositis (44278971) Interstitial myositis of left foot (M60.172) Active confirmed Vital Signs Blood pressure diastolic 80 mm Hg 09/13/2024 Height 5ft5in in 09/13/2024 Blood pressure systolic 117 mm Hg 09/13/2024 Weight 155 lbs 09/13/2024 BMI 25.79 kg/m2 09/13/2024 Encounters Encounter Location Date Provider Diagnosis [address] [address] 07/22/2024 Opal Perica Pain in left foot M79.672 ; Plantar fasciitis of left foot M72.2 ; Calcaneal spur, left foot M77.32 ; Interstitial myositis of left foot M60.172 and Bursitis of left foot M77.[address] [address] 09/13/2024 Opal Perica Pain in left foot M79.672 ; Calcaneal spur, left foot M77.32 ; Interstitial myositis of left foot M60.172 ; Bursitis of left foot M77.52 and Plantar fasciitis M72.[address] [address] 06/26/2024 [facility] [address] [address] 07/22/2024 [facility] [address] [address] 10/21/2024 Opal Guerreroa Assessments Encounter Date Diagnosis (ICD Code) Assessment Notes Treatment Notes Treatment Clinical Notes Section Notes 07/22/2024 Pain in left foot (ICD-10 - M79.672) 07/22/2024 Plantar fasciitis of left foot (ICD-10 - M72.2) Patient Educated with: HEEL CORD STRETCHES.pdf (HEEL CORD STRETCHES.pdf ) Patient Educated with: RICE THERAPY.pdf (RICE THERAPY.pdf) 09/13/2024 Pain in left foot (ICD-10 - M79.672) 09/13/2024 Calcaneal spur, left foot (ICD-10 - M77.32) 07/22/2024 Calcaneal spur, left foot (ICD-10 - M77.32) 09/13/2024 Interstitial myositis of left foot (ICD-10 - M60.172) 07/22/2024 Interstitial myositis of left foot (ICD-10 - M60.172) 09/13/2024 Bursitis of left foot (ICD-10 - M77.52) 09/13/2024 Plantar fasciitis (ICD-10 - M72.2) Resistant to previous conservative treatment Patient Educated with: RICE THERAPY.pdf (RICE THERAPY.pdf) Patient Educated with: INJECTIONTHER APY.pdf (INJECTIONTHE RAPY.pdf) 07/22/2024 Bursitis of left foot (ICD-10 - M77.52) 09/13/2024 Other Plan Of Treatment Pending Test Test Name Order Date X ray : Foot, left 3V 07/22/2024 Insurance Providers Payer Name Payer Address Payer Phone Subscriber Number Group Number Insured Name Patient Relationship to Insured Coverage Start Date Coverage End Date Blue [place] [address] [address] [place] [address] [id number] [facility] [id number] [address] Self - patient is the insured Medical (General) History Medical History History ICD Code Measles Surgical History Surgery Date(Month/Year) Sub Acromial Decompression [phone]
--- OUTSIDE RECORDS SUMMARY | 2024-12-11 11:02 | XMS_ITS | Data Portability ---
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 Plan of Treatment Reminders Order Date Submit Date Provider Last Modified By Organization Details Last Modified Time Details Appointments None recorded. Lab rapid strep group A, throat 2022 023 [email or web address] [facility], [address] [place] [address], [address], 3 12:39:49 streptococc us group A, culture, throat 2022 023 [facility] 3[facility] [address] [place] [address], [place], [address], 3 08:09:21 Referral None recorded. Procedures None recorded. Surgeries None recorded. Imaging None recorded. Medication Orders None recorded. Patient TargetsNo targets recorded. Patient Instructions Encounter Date Encounter Id Patient Instructions Last Modified By Organization Details Last Modified Time 01/22/2023 [id number] headache: care instructions [email or web address] Not available 01/22/2023 12:39:49 Take ibuprofen 600mg three times a day with food for 7-10 days as needed for headache. [email or web address] Not available 01/22/2023 12:39:40 1.Drink plenty o f fluids 2. For no improvement in 1-2 days, please return to [facility] for follow up, or sooner for additional concerns. 3. For symptoms of worst headache of your life, confusion, one sided weakness, difficulty waking, shortness of breath, chest pain or other serious concerns, please go directly to the ER [email or web address] Not available 01/23/2023 09:53:25 Reason for Referral None Reported. Results Created Date Observation Date Name Description Value Unit Range Abnormal Flag Note LastModifiedBy Organization Detail LastModifiedTime 01/23/2001/25/2023 BETA STREP GP A CULTU RE beta strep gp A culture NEGATI VE Refer ence Range : Negat melita Not Available [facility] ([facility]) [address] [facility], [place], [address], 01/25/2023 08:09:21 01/23/2001/22/2023 rapid strep group A, throa t Unknown Analyte Normal = Negati ve Not Available [email or web address] [address], [address], 01/22/2023 11:35:57 01/23/2001/22/2023 rapid strep group A, throa t Unknown Analyte negati ve Not Available [email or web address] [email or web address], [address], 01/22/2023 11:35:57 Result Notes None recorded. Problems No Known Problems Medical Equipment None Reported. Allergies Allergen ID Allergen Name Allergen Category Reaction Reaction Severity Criticality Documentation Date Start Date Code Code System Note Provider Name and Address Organization Details Recorded Time 366365 latex environme nt,medica tion Not available Not available Not available 01/22/2023 55680 91 RxNorm Katrin schmitt PA - [facility] 11:36:23 706015 Product containin g penicilli n (product) medicatio n Not available Not available Not available 01/22/2023 01169 8001 SNOMED Katrin schmitt, PA - [facility] 11:36:36 Medications Name Sig Start Date Stop Date Status Note LastModified by Organization Details LastModified Time prednisone 20 mg tablet TAKE 3 TABLETS BY MOUTH DAILY 01/22 completed Not Available Not Available Not Available terconazole 0.8 % vaginal cream INSERT 1 APPLICATO RFUL VAGINALLY AT BEDTIME FOR 3 DAYS 01/22 completed Not Available Not Available Not Available magnesium active Not Available Not Mary ilable Not Available Fish Oil active Not Available Not Avai lable Not Available Vitamin D3 active Not Available Not Av ailable Not Available Zyrtec active Not Available Not Availa ble Not Available multivitami n active Not Available Not Available Not Available Vitals Date Recorded Body height Body mass index (BMI) Body weight Pain severity - 0-10 verbal numeric rating [Score] - Reported Respiratory rate Oxygen saturation Oxygen saturation in Arterial blood by Pulse oximetry Heart rate Body temperature Systolic blood pressure Diastolic blood pressure Provider Name and Address Organization Details Last Updated DateTime 3 167.64 cm 24.2 kg/m2 49946.8 6 g 3 18 /min 99 % 99 % 60 /min 98.4 [degF] 117 mm[Hg] 79 mm[Hg] Katrin BEASLEY [facility] 11:39:13 Social History Question Answer Notes LastModified by Zane Prep ion Details LastModified Time Tobacco Smoking Status Never Smoker Katrin schmitt [facility] [employer] 01/22/2023 11:37:52 What Is Your Level Of Alcohol Consumption? Occasional Information not available 01/22/2023 How Many Times Per Week Do You Consume Alcohol? Less Than 1 Time Per Week Information not available 01/22/2023 Do You Use Any Illicit Or Recreational Drugs? No Information not available 01/22/2023 Have You Recently Traveled Abroad? No Information not available 01/22/2023 Do You Or Have You Ever Used Any Other Forms Of Tobacco Or Nicotine? No Information not available 01/22/2023 Sex: Unknown Functional Status None recorded. Mental Status None recorded. Family History Relationship Description Onset Age of this Age Resolved Age Notes LastModified by Organization Details LastModified Time Father No current problems or disability [email or web address] Not available 01/22 11:37:38 Mother No current problems or disability [email or web address] Not available 01/22 11:37:38 Medical History No medical history recorded. Gynecological History Statement/Question Response Date of LMP 01/13/2023 Is there any chance of ? No Obstetrics History GPAL:G 0 P 0 0 0 0 Immunizations Vaccine Type Date Status Note Provider Nam e and Address Organization Details Recorded Time zoster recombinant 11/19/2021 completed Katrin Monfette null, PA - [facility] 01/22/2023 11:36:15 zoster recombinant 05/15/2021 completed Katrin Monfette null, PA - [facility] 01/22/2023 11:36:15 COVID-19, mRNA, LNP-S, PF, 100 mcg/0.5mL dose or 50 mcg/0.25mL dose 07/13/2021 completed Katrin Monfette null, PA - [facility] 01/22/2023 11:36:15 COVID-19, mRNA, LNP-S, PF, 30 mcg/0.3 mL dose 10/21/2020 completed Katrin Monfette null, PA - [facility] 01/22/2023 11:36:15 COVID-19, mRNA, LNP-S, PF, 30 mcg/0.3 mL dose 11/11/2020 completed Katrin Monfette null, PA - [facility] 01/22/2023 11:36:15 COVID-19, mRNA, LNP-S, bivalent, PF, 50 mcg/0.5 mL or 25mcg/0.25 mL dose 06/01/2022 completed Katrin Monfette null, PA - [facility] 01/22/2023 11:36:15 Influenza, split virus, quadrivalent, PF 05/15/2021 completed Katrin Monfette null, PA - [facility] 01/22/2023 11:36:15 Influenza, split virus, quadrivalent, PF 05/21/2022 completed Katrin Monfette null, PA - [facility] 01/22/2023 11:36:15 Influenza, split virus, quadrivalent, PF 05/28/2019 completed Kartin Monfette null, PA - [facility] 01/22/2023 11:36:15 Past Encounters Encounter ID Performer Location Encounter Start Date Encounter Closed Date Diagnosis/Indication Diagnosis SNOMED-CT Code Diagnosis ICD10 Code Diagnosis Note [id number] JACKY BESS MD [address] [place] [address] 01/22/2023 10:20:54 01/22/2023 12:45:38 Headache 06997608 R51.9 Health Concerns Section Related Observation LastModified by Organization Detai ls LastModified Time None Recorded Concern Status LastModified by Organization Details LastModified Time None Recorded Advance Directives Directive None Recorded Payers Encounter Date Sequence Insurance Name Policy Number Policy Ke[place] Covered Member ID Ke[place] Member ID Guarantor Name 01/22/2023 1 [employer] [place] ([id number] Luis Carlos Jones [id number] Ruby Jones Notes Date Note Type Note Provider Name and Address Organization Details Recorded Time 01/22/2023 text/html Headache [facility] gwendolyn bypatient.source of patient informationpatient Location:[place] Quality:not the worst headache ever; similar to previous headaches Severity:mild; pain level 3/10 Onset/Timing:abrupt onset Context:not related to trauma Aggravating factors:nothing makes it worse Alleviating factors:nothing gives relief Associated Symptoms:no vomiting; no sensitivity to light; no confusion; no slurred speech; no preceeding aura; no double vision; normal feeling/sensation; no dizziness; no nosebleeds; no hoarseness; no sore throat; no hearing loss; no cold symptoms; no tearing/watery eyes 52 yo female presents with a 1 day hx of headache and no other sxs. She states that her daughter has sxs of strep throat. She claims to be very sensitive to getting Strep when around someone who have strep. She is requesting testing for Strep since she has to travel for work at the end of the week. JACKY BESS MD [address] [place], [address], [place] - [facility] 01/23/2023 09:53:50 OBGyn Episode No OBEpisode recorded.
--- OUTSIDE RECORDS SUMMARY | 2024-12-11 11:03 | XMS_ITS ---
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 Name Role Phone Phani ALLISON, Dolores Dumont Primary Care Provider Un available Opal Steve Unavailable [phone] Allergies Allergen (clinical drug ingredient) Drug/Non Drug Allergy documented on EMR Reaction Allergy Type Onset Date Status Penicillin Unknown Drug Allergy Active REASON FOR VISIT Heel pain Medications Medication SIG (Take, Route, Frequency, Duration) Notes Start Date End Date Status Night Splint AFO - L1930 1 wear at rest for 30 days Active ZyrTEC Active Vitamin D3 Active Fish Oil Active Medrol amparo 4mg as directed orally a s directed for 6 days 07/22/2024 Active Vitamin C Active Magnesium Glycinate Active Social History Tobacco Use: Social History Observation Description Date Details (start date - stop date) Never Smoker NA - NA Tobacco use other than smoking: Question Answer Notes Are you an other tobacco user? No Tobacco Control (Standard) Question Answer Notes Tobacco use: Nonsmoker Additional Findings: Tobacco non-user Current no nsmoker Problems Problem Type SNOMED Code ICD Code Onset Dates Problem Status W/U Status Risk Notes Problem Plantar fasciitis (048566852) Plantar fasciitis (M72.2) Active confirmed Resistant to previous conservative treatment Vital Signs Height 5ft5in in 09/13/2024 Weight 155 lbs 09/13/2024 BMI 25.79 kg/m2 09/13/2024 Blood pressure systolic 117 mm Hg 09/13/19 25 Blood pressure diastolic 80 mm Hg 025 Encounters Encounter Location Date Provider Diagnosis [facility] [place] [address] [place] [address] 09/13/2024 Opal Perica Pain in left foot M79.672 ; Calcaneal spur, left foot M77.32 ; Interstitial myositis of left foot M60.172 ; Bursitis of left foot M77.52 and Plantar fasciitis M72.2 Assessments Encounter Date Diagnosis (ICD Code) Assessment Notes Treatment Notes Treatment Clinical Notes Section Notes 09/13/2024 Pain in left foot (ICD-10 - M79.672) 09/13/2024 Calcaneal spur, left foot (ICD-10 - M77.32) 09/13/2024 Interstitial myositis of left foot (ICD-10 - M60.172) 09/13/2024 Bursitis of left foot (ICD-10 - M77.52) 09/13/2024 Plantar fasciitis (ICD-10 - M72.2) Resistant to previous conservative treatment Patient Educated with: RICE THERAPY.pdf (RICE THERAPY.pdf) Patient Educated with: INJECTIONTHER APY.pdf (INJECTIONTHE RAPY.pdf) 09/13/2024 Other Plan Of Treatment Treatment Notes Assessment Notes Plantar fasciitis Patient Educated wit h: RICE THERAPY.pdf (RICE THERAPY.pdf) Patient Educated with: INJECTIONTHERAPY.pdf (INJECTIONTHERAPY.pdf) Next Appt Details Follow Up: 2 Months, Reason: Procedure Notes * Category Sub-Category Detail Notes Injection Tendon Sheath or Fascia 73651, J 0702 Injection - #1 Left Plantar Fascia w/ mixture of Celestone Soluspan 3mg and 1cc 1 percent Xylocaine Plain anes. utilizing aseptic technique. The patient tolerated the procedure well. A dry sterile dressing was applied. Post injection instructions were dispensed, verbally discussed, and confirmed understood by the patient. I explained that a steroid and local anesthetic injections are administered to relieve pain and inflammation and thereby meant to improve function. I explained the possible complications including but not limited to signs/symptoms of steroid flare, infection, bruising, atrophy, discoloration of skin, change/deviation in toe position, and that additional injections may be necessary, Patient relates post-procedural pain assessment improved at ( 0-1) out of 10 Progress Notes * Shonna SIN: 1 (54 yo F)Acc No.[id number]:09/13/2024 Progress Notes Patient:?Ruby SIN Provider:?Opal Steve DPM :1970???Age:54 Y???Sex:Female D ate:09/13/2024 Address:[address] [place] [address] , [facility] Pcp:Jonnathan Ruiz Subjective: * Chief Complaints: * ???Heel pain * HPI: ???Heel pain:?Nature:?aching, tenderness, throbbing.?Location:?Proximal plantar aspect of Heel, LEFT.?Duration:?, a year or more.?Onset/Cause:?gradual.?Course:?improved some.?Aggravated:?standing, walking, walking first thing in the morning/after rest, work/job.?Treatments:?rest/alter normal daily activity, change in shoes, pre- fabricated orthoses, stretching , arch supports, medication ( Medrol, Voltaren),, AFO-nightsplint.?Severity/Quality:?Pre-injection procedure pain assessment - ( 8) out of 10.?Misc:?Patient states previous conservative therapy has not provided acceptable relief. Despite previous treatments/efforts, patient continues to relate substantial pain and significant functional disability during activity , The patient denies to have received any vaccine therapy within the past month.? * ROS:?General/Constitutional:?Nausea?denies.?Vomiting?denies.?Hunger Thirst?denies.?Loss appetite?denies.?Chills?denies.?Fatigue?denies.?Fever?denies.?Night Sweats?denies.?Unexplained weight loss?denies.?Unexplained weight gain?denies.?HEENTM:?Dentures?denies.?Dizziness?denies.?Glasses/contacts?admits.?Retinopathy?de nies.?Blurred/double vision?denies.?TMJ?denies.?Discharge/drainage?denies.?Implants?denies.?Sore throat?denies.?Dental implants?denies.?Hard of hearing ?denies.?Difficulty chewing/swallowing/speaking?denies.?Nose bleeds?denies.?Sore mouth?denies.?Respiratory:?On Oxygen?denies.?Pneumonia/pleurisy?denies.?Bronchitis?denies.?Emphysema?denies.?C oughing?denies.?Cough blood?denies.?Shortness of breath?denies.?Wheezing?denies.?Cardiovascular:?Pacemaker?denies.?MVP?denies.?WPW?denies.?CHF?denies.?Heart attack?denies.?Septal defect?denies.?Rapid beat?denies.?Chest pain ?denies.?Atrial Fib.?denies.?Murmur/Palpitations?denies.?Gastrointestinal:?Hemorrhoids?denies.?Stomach/Abdominal pain?denies.?Dark blood stool?denies.?Irritable bowel ?denies.?Constipation?denies.?Diarrhea?denies.?Hematology:?Swelling?denies.?Clots?denies.?Varicose Veins?denies.?Bruising?denies.?Bleeding problem?denies.?Genitourinary:?Blood urine?denies.?Frequent/Painfu/urination/bladder control?denies.?Kidney stones?denies.?Infection (UTI)?denies.?Nephropathy?denies.?sex trans dis (STD)?denies.?Prostate?denies.?Musculoskeletal:?Hammertoes?denies.?Bunions?denies.?Back Pain?denies.?Muscle Cramps/ Resting?denies.?Muscle cramps / walking?denies.?Generalized aches and pains?admits.?Weakness?denies.?Integ.:?Alatorre?denies.?Scars?denies.?Corns/calluses?denies.?Ingrown nails?denies.?Painful nails?denies.?Open Sores?denies.?Rashes?denies.?Neurologic:?Difficulty sleeping?denies.?Brain disorder?denies.?Numbness?denies.?Balance trouble?denies.?Confusion?denies.?Fainting/blackouts?denies.?Tingling?denies.?Tr emors?denies.? * Medical History:? * Surgical History:?Sub Acromi al Decompression [id number] * Hospitalization/Major Diagno stic Procedure:?Denies Past Hospitalization * Family History:?Mother: beny garner.?Father: alive.? * Social History:?Tobacco Use:?Tobacco use other than smoking?Are you an other tobacco user??No ?Tobacco Control (Standard)?Tobacco use:?Nonsmoker ?Additional Findings: Tobacco non-user?Current nonsmoker ???Miscellaneous:?Caffeine: yes, 2-3 cups per day. ?Children: yes, 1. ?Exercise: yes, walking, yoga, weightlifting, pilates. ?Marital status: . 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 * Medications:?TakingMagnesium Glycinate Vitamin C Fish Oil Vitamin D3 ZyrTEC Night Splint AFO - L1930 1 wear at rest Medrol amparo 4mg Tablet Therapy Pack as directed orally as directed Medication List reviewed and reconciled with the patientTaking Magnesium Glycinate Taking Vitamin C Taking Fish Oil Taking Vitamin D3 Taking ZyrTEC Taking Night Splint AFO - L1930 1 wear at rest Taking Medrol amparo 4mg Tablet Therapy Pack as directed orally as directed Medication List reviewed and reconciled with the patient * Allergies:?Penicillinyes[All ergies Verified] Objective: * Vitals:?Ht: 5ft5in, Wt:155, BMI:25.79, Shoe size: 9.5, BP:117/80mm Hg, Ht-cm: 165.1 cm, Wt-k.31 kg. * Examination: ???Heel Pain: ?INSPECTION:? Pain on Palpation to Plantar Fascia med. and central bands, intrinsic musc., infra-calcaneal bursa, and med calc tubercle , LEFT foot, No pain: posterior/superior heel, achilles bursa/tendon, sinus tarsi, peroneals, or with lateral heel compression; no limited STJ ROM, calor, or ecchymosis.?Orthopedic: ?MUSCLE STRENGTH:?5/5 all groups in a symmetrical fashion , B/L.?Neurological: ?SENSORY:?Neurological exam reveals intact sensorium, pain sensation normal, vibration sensation intact, pinprick sensation is normal in the lower extremities, Pt denies, anesthesia, burning, paresthesia, tingling, B/L.?TINEL'S COMPRESSION:?Negative tarsal tunnel, dione pedis, and medial calcaneal nerves.?General Examination: ?GENERAL APPEARANCE:?Reveals a pleasant, alert, well-nourished, well- developed, well hydrated individual, who demonstrates proper attention to hygiene/body habitus, and is in no acute distress, Pt serves as own?historian for office visit today.?ORIENTED:?person, place, and time.?Vascular: ?DP PULSES (B):?3/4, B/L.?PT PULSES (B):?3/4, B/L.?CAPILLARY FILL TIME:?immediate, all digits, B/L.?TROPHIC CONDITION-TEXTURE/ELASTICITY/TURGOR/HAIR GROWTH (B):?normal, B/L.?TEMPERTURE GRADIENT (C):?warm to cool, proximal to distal, B/L.?PIGMENTATION:?normal, B/L.?EDEMA (C):?absent, B/L.?Dermatologic: ?SKIN FINDINGS:?Skin exam reveals normal texture, elasticity, and turgor. There are no masses. The interspaces are clear.? 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 Plan: * Treatment: * Procedures:?Injection:?Tendon Sheath or Fascia?72740, J0702 Injection - #1 Left Plantar Fascia w/ mixture of Celestone Soluspan 3mg and 1cc 1 percent Xylocaine Plain anes. utilizing aseptic technique. The patient tolerated the procedure well. A dry sterile dressing was applied. Post injection instructions were dispensed, verbally discussed, and confirmed understood by the patient. I explained that a steroid and local anesthetic injections are administered to relieve pain and inflammation and thereby meant to improve function. I explained the possible complications including but not limited to signs/symptoms of steroid flare, infection, bruising, atrophy, discoloration of skin, change/deviation in toe position, and that additional injections may be necessary, Patient relates post-procedural pain assessment improved at ( 0-1) out of 10.? * Procedure Codes:?64258 INJ T ENDON SHEATH/[id number] INJ BETAMETHSN ACTAT&SOD PHOSPH-3MG * Preventive Medicine:? ??Counseling:?Discussion:?-13: Office or other outpatient visit for the evaluation and management of an established patient, which required a medically appropriate history and/or examination and LOW level of DECISION MAKING for: 1 STABLE ACUTE UNCOMPLICATED PROBLEM, 2 OR MORE MINOR PROBLEMS, OR 1 STABLE CHRONIC PROBLEM, THAT POSE(S) A LOW RISK FOR MORBIDITY/MORTALITY. The visit on the day of the encounter encompassed interpreting the data and educating the patient as to the nature of their condition, treatment options available according to their individual PMH, meds, allergies, and overall health/living conditions, as well as any potential risks or complications that may occur from a failure to adhere to, and participate in, the recommended course of therapy. The discussion included a complete verbal, and/or written explanation of the examination results, any x-rays taken, the proposed diagnosis, and outline of the treatment plan. A schedule for future care needs was also explained. The patient verbalized an understanding of the instructions at this time and agreed to be an active participant in their treatment. If the patient should think of any questions or concerns after the visit, I have encouraged the patient to call the office.?Heel pain:?Discussed other tx options for the patients condition,, Recommend pt to continue with the present plan for their condition, EPAT brochure is dispensed and discussed.?P.R.I.C.E.:?The patient was counseled on the use of P.R.I.C.E. and NSAIDS (if well tolerated) to aid in the recovery from their painful condition, The patient was counseled on the use of P.R.I.C.E. and NSAIDS (if well tolerated) to aid in the recovery from their painful condition.?Shoe Gear Counseling:?The patient and I reviewed the types of shoes they should be wearing. My recommendation included obtaining a well-fitted shoe with a good supportive, non-foldable nor twistable sole, plenty of toe/room for the forefoot, and proper arch support. Based on todays examination, I recommended the patient look for new shoes, by having their feet professionally measured. We discussed that generally the best time of the day for a shoe fitting is the afternoon. Different shoes types and brands to best match the patients occupation and vocation were discussed. Specific brand selection will be up to the patient, their individual foot condition/deformities, and fit. The patient and I reviewed the standard new shoe break in period by wearing them for a few hours a day while checking for redness or sores as wear time is increased. The patient verbally confirmed to understanding the information discussed.?Steriod Injection:?I explained that a steroid and local anesthetic injections are administered to relieve pain and inflammation and thereby meant to improve function. I explained the possible complications including but not limited to signs/symptoms of steroid flare, infection, bruising, atrophy, discoloration of skin, change/deviation in toe position, and that additional injections may be necessary, cortisone post-injection informative educational handout was dispensed to and reviewed with the patient, In order to prevent any compromise of an effective immune response, it was recommended the patient refrain from any vaccine therapy for the next month. Patient verbally confirmed understanding the previously mentioned protocol.?Stretching Exercises:?Stretching and deep tissue massage exercises for the patients injury/diagnosis were discussed and demonstrated, handouts were dispensed.? * Follow Up:?2 Months * Images: * Sign off status: Completed true * Provider:?Opal Steve DPM Date:? Generated for Angelito molina/Cathryn/Tyree on:?12/11/2024 11:02 AM EDT History and Physical Notes * HPI (History of Present Illness) Category Sub-Category Detail Notes Category Not es Heel pain Duration: , a year or more Nature: aching, tenderness, throbbing Severity/Quality: Pre-injection proced ure pain assessment - ( 8) out of 10 Location: Proximal plantar asp ect of Heel, LEFT Onset/Cause: gradual Aggravated: standing, walking, w alking first thing in the morning/after rest, work/job Course: improved some Treatments: rest/alter normal da calvin activity, change in shoes, pre-fabricated orthoses, stretching , arch supports, medication ( Medrol, Voltaren),, AFO-nightsplint Misc: Patient states previ ous conservative therapy has not provided acceptable relief. Despite previous treatments/efforts, patient continues to relate substantial pain and significant functional disability during activity , The patient denies to have received any vaccine therapy within the past month Examination Category Sub-Category Detail Notes Category Not es Neurological SENSORY: Neurological exa m reveals intact sensorium, pain sensation normal, vibration sensation intact, pinprick sensation is normal in the lower extremities, Pt denies, anesthesia, burning, paresthesia, tingling, B/L TINEL'S COMPRESSION: Negative tarsal lane rupert, dione pedis, and medial calcaneal nerves Dermatologic SKIN FINDINGS: Skin exam reveal s normal texture, elasticity, and turgor. There are no masses. The interspaces are clear Orthopedic MUSCLE STRENGTH: 5/5 all groups in a symm etrical fashion , B/L General Examination GENERAL APPEARANCE: Reveals a pleasant, alert, well- nourished, well-developed, well hydrated individual, who demonstrates proper attention to hygiene/body habitus, and is in no acute distress, Pt serves as own historian for office visit today ORIENTED: person, place, and t serene Vascular DP PULSES (B): 3/4, B/L PT PULSES (B): 3/4, B/L CAPILLARY FILL TIME: immediate, all digi ts, B/L TEMPERTURE GRADIENT (C): warm to cool, p roximal to distal, B/L TROPHIC CONDITION-TEXTURE/ELASTICITY/TURGOR/HAIR GROWTH (B): normal, B/L EDEMA (C): absent, B/L PIGMENTATION: normal, B/L Heel Pain INSPECTION: Pain on Palpatio n to Plantar Fascia med. and central bands, intrinsic musc., infra-calcaneal bursa, and med calc tubercle , LEFT foot, No pain: posterior/superior heel, achilles bursa/tendon, sinus tarsi, peroneals, or with lateral heel compression; no limited STJ ROM, calor, or ecchymosis
== END 2024-12-11 10:04 | disposition home or self-care (01) ==
LOC: HO.MAMMO 10:03
PROVIDERS: PCP Internal Medicine; Visit Provider Internal Medicine
DX: Z12.31 Encounter for screening mammogram for malignant neoplasm of breast (principal)
CPT/HCPCS: 77063; 77067

== ENCOUNTER → 2024-12-11 10:30 | Outpatient (BNV) | payer OTHER, SELFPAY | PROVIDERS: PCP Internal Medicine; Visit Provider Internal Medicine | DX: Z12.31 Encounter for screening mammogram for malignant neoplasm of breast (principal) | CPT/HCPCS: 77063; 77067 ==

== ENCOUNTER 2025-02-03 10:54 | Outpatient (AMB) | payer OTHER, SELFPAY ==
[2025-02-03 11:07] VITALS: BP 90/60; PULSE 97; TEMP 37.1; O2SAT 97; BMI 25.8
--- NOTE | 2025-02-03 11:07 | AM.OFFWIN_ITS ---
Intake Intake Visit Reasons: EP-rt ear pain Patient Tobacco Use Status: Never used Tobacco Allergies penicillin G Allergy (Unknown, Verified 08/11/24 23:01) Unknown penicillin G procaine Allergy (Unknown, Verified 08/11/24 23:01) Unknown penicillin V Allergy (Unknown, Verified 08/11/24 23:01) unknown latex glove Allergy (Unknown, Uncoded 08/11/24 23:01) Rash Penicillin G Proc & Benzathine Allergy (Unknown, Uncoded 08/11/24 23:01) Unknown Penicillium Notatum Allergy (Unknown, Uncoded 08/11/24 23:01) Unknown [facility] Medical History History of Meniere's syndrome Elevated TSH Hyperlipidemia Calcific tendinitis of right shoulder Dense breast tissue on mammogram Tendinopathy of right shoulder Surgical History S/p bilateral myringotomy with tube placement Hx of shoulder surgery Family History Mother No problems noted. Father No problems noted. 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
--- NOTE | 2025-02-03 11:07 | AM.OFFWIN_ITS ---
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: No Allergies penicillin G Allergy (Unknown, Verified 02/03/25 11:11) Unknown penicillin G procaine Allergy (Unknown, Verified 02/03/25 11:11) Unknown penicillin V Allergy (Unknown, Verified 02/03/25 11:11) unknown latex glove Allergy (Unknown, Uncoded 08/11/24 23:01) Rash Penicillin G Proc & Benzathine Allergy (Unknown, Uncoded 08/11/24 23:01) Unknown Penicillium Notatum Allergy (Unknown, Uncoded 08/11/24 23:01) Unknown Do you need a note to return to daycare/school/sports/work: No HPI HPI Comments History of Present Illness Details History - The patient is a 54-year-old female pr esenting with a blocked ear and concerns about possible infection due to persistent symptoms. - The ear blockage has been present sinc e wintertime, with associated sharp pains at high elevations. - The patient experiences drainage at [facility] but reports persistent hearing difficulties. - The patient has a history of allergies year-round, managed with daily Zyrtec, but has not used Sudafed recently. - The patient has been taking Zyrtec for a decade due to environmental allergies, including dust mites. - She has Flonase that she uses occasion ally. - She denies fever, chills, CP, SOB, abd pain, n/v/d, WOFLF, dizziness, ringing in the ear, or discharge. Physical Exam General: Cooperative, healthy appearing, comfortable and no acute distress Orientation/consciousness: Patient oriented x3 Head: Normal to inspection Ears: External ears normal. No tragus or mastoid tenderness noted. Effusion noted on the right, TM is normal. No cerumen noted. Nose: Normal external nose present, normal nares present, and no nasal discharge present. Face and sinus: Sinuses non tender to palpation. Mouth: Normal oral and palatal mucosa present and moist mucous membranes noted. Throat: Tonsils normal. Uvula is midline. Posterior oropharynx with erythema and no exudates. Eyes: Appearance normal, both eyes and all related structures Neck: Normal visual inspection, full ROM. No lymphadenopathy noted. Respiratory: Clear to auscultation bilaterally. Normal respiratory effort, able to speak in complete sentences. No respiratory distress, not tachypneic, no tripod positioning and no use of accessory muscles. Cardiovascular: Regular rate and rhythm. Normal S1 and S2 Skin: No rashes or lesions noted Patient was informed and verbally consented to the use of an ambient scribe for clinic note documentation during this visit [facility] Medical History History of Meniere's syndrome Elevated TSH Hyperlipidemia Calcific tendinitis of right shoulder Dense breast tissue on mammogram Tendinopathy of right shoulder Surgical History S/p bilateral myringotomy with tube placement Hx of shoulder surgery Family History Mother No problems noted. Father No problems noted. Social History Housing: House Patient Tobacco Use Status: Never used Tobacco e-Cigarette/Vaping Use: Never Used service: No Current occupational status: employed Cognitive needs: No Hearing needs: No Vision needs: Yes Review of Systems Const All systems reviewed & are unremarkable except as noted in HPI and below Physical Exam Vital Signs: Last Vital Signs Temp 98.7 F 02/03/25 11:07 Pulse 97 02/03/25 11:07 BP 90/60 02/03/25 11:07 Pulse Ox 97 02/03/25 11:07 Oxygen Delivery Method Room Air 02/03/25 11:07 BMI result Body Mass Index 25.8 Assessment & Plan Assessment & Plan (1) Ear pain, right: Code(s): H92.01 - Otalgia, right ear Plan Most likely ET dysfunction vs OM vs OE vs allergic rhinitis Plan - Recommend switching from Zyrtec to Zyrtec D to include a decongestant for better management of ear blockage. - Consider using nasal spray such as Flonase to assist with drainage and alleviate symptoms. - Monitor symptoms and consider follow-up if no improvement is observed with the medication change. 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
--- OUTSIDE RECORDS SUMMARY | 2025-02-03 12:22 | XMS_ITS | Data Portability ---
Author Organization [facility], [address] Address [address] [place] [address] Care Team Providers Care Independent Jeweler Name Role Phone JACQUI PRADO Primary Care Provider Assessment No assessment recorded. Plan of Treatment Reminders Order Date Submit Date Provider Last Modified By Organization Details Last Modified Time Details Appointments None recorded. Lab rapid strep group A, throat [facility]22 [facility], [address] [place] [address], [id number], 3 12:39:49 streptococc us group A, culture, throat 2022 023 [facility], [address] [place] [address], [address], 3 08:09:21 Referral None recorded. Procedures None recorded. Surgeries None recorded. Imaging None recorded. Medication Orders None recorded. Patient TargetsNo targets recorded. Patient Instructions Encounter Date Encounter Id Patient Instructions Last Modified By Organization Details Last Modified Time 01/22/2023 [id number] headache: care instructions [id number] Not available 01/22/2023 12:39:49 Take ibuprofen 600mg three times a day with food for 7-10 days as needed for headache. [id number] Not available 01/22/2023 12:39:40 1.Drink plenty o f fluids 2. For no improvement in 1-2 days, please return to [facility] for follow up, or sooner for additional concerns. 3. For symptoms of worst headache of your life, confusion, one sided weakness, difficulty waking, shortness of breath, chest pain or other serious concerns, please go directly to the ER [id number] Not available 01/23/2023 09:53:25 Reason for Referral None Reported. Results Created Date Observation Date Name Description Value Unit Range Abnormal Flag Note LastModifiedBy Organization Detail LastModifiedTime 01/23/20 23 01/25/2023 BETA STREP GP A CULTU RE beta strep gp A culture NEGATI VE Refer ence Range : Negat melita Not Available [facility] ([facility]) [address] [facility], [place], [address], 01/25/2023 08:09:21 01/23/2001/22/2023 rapid strep group A, throa t Unknown Analyte Normal = Negati ve Not Available [address], [address], 01/22/2023 11:35:57 01/23/2001/22/2023 rapid strep group A, throa t Unknown Analyte negati ve Not Available [facility], [address], 01/22/2023 11:35:57 Result Notes None recorded. Problems No Known Problems Medical Equipment None Reported. Allergies Allergen ID Allergen Name Allergen Category Reaction Reaction Severity Criticality Documentation Date Start Date Code Code System Note Provider Name and Address Organization Details Recorded Time 105238 latex environme nt,medica tion Not available Not available Not available 01/22/2023 63919 91 RxNorm Katrin Arnol schmitt, [place] - [facility] 11:36:23 681099 Product containin g penicilli n (product) medicatio n Not available Not available Not available 01/22/2023 09280 8001 SNOMED Katrin Edmarfedeclan null, PA - [facility] 11:36:36 Medications Name [...] height Body mass index (BMI) Body weight Respiratory rate Oxygen saturation Oxygen saturation in Arterial blood by Pulse oximetry Heart rate Body temperature Systolic blood pressure Diastolic blood pressure Provider Name and Address Organization Details Last Updated DateTime 3 167.64 cm 24.2 kg/m2 72789.8 6 g 18 /min 99 % 99 % 60 /min 98.4 [degF] 117 mm[Hg] 79 mm[Hg] Katrin Ambrose [employer] 3 11:39:13 Social History Question Answer Notes LastModified by [employer] Details LastModified Time Tobacco Smoking Status Never Smoker Katrin schmitt [employer] 01/22/2023 11:37:52 Have You Recently Traveled Abroad? No Information not available 01/22/2023 Sex: Unknown Functional Status Question Answer Note LastModified by [employer] Details LastModified Time How many times per week do you consume alcohol? Less than 1 time per week Information not available 01/22/2023 Do you use any illicit or recreational drugs? No Information not available 01/22/2023 Do you or have you ever used any other forms of tobacco or nicotine? No Information not available 01/22/2023 What is your level of alcohol consumption? Occasional Information not available 01/22/2023 Mental Status None recorded. Family History Relationship [...] Recorded Time zoster recombinant 11/19/2021 completed Katrin Sernae null, PA - [facility] 01/22/2023 11:36:15 zoster recombinant 05/15/2021 completed Katrin Sernae null, PA - [facility] 01/22/2023 11:36:15 COVID-19, mRNA, LNP-S, PF, 100 mcg/0.5mL dose or 50 mcg/0.25mL dose 07/13/2021 completed Katrin Hyattfette null, PA - [facility] 01/22/2023 11:36:15 COVID-19, mRNA, LNP-S, PF, 30 mcg/0.3 mL dose 10/21/2020 completed Katrin Hyattfette null, PA - [facility] 01/22/2023 11:36:15 [...] Influenza, split virus, quadrivalent, PF 05/28/2019 completed Katrin Monfette null, PA - [facility] 01/22/2023 11:36:15 Past Encounters Encounter ID Performer Location Encounter Start Date Encounter Closed Date Diagnosis/Indication Diagnosis SNOMED-CT Code Diagnosis ICD10 Code Diagnosis Note [id number] [facility]ACK[facility] BESS [facility] [address] [address] [place] [address] 01/22/2023 10:20:54 01/22/2023 12:45:38 Headache 70044298 R51.9 Health Concerns Section Related Observation LastModified by Organization Detai ls LastModified Time None Recorded Concern Status LastModified by Organization Details LastModified Time None Recorded Advance Directives Directive None Recorded Payers Insurance Date Sequence Insurance Name Policy Number Policy Ke[place] Covered Member ID [place] Member ID Guarantor Name 01/23/2023 1 [employer] [facility] ([id number]) [id number] Luis Carlos Jones [id number] Ruby Jones Notes Date Note Type [...] JACKY BESS MD [address] [place], [address], [place] - [facility] 01/23/2023 09:53:50 OBGyn Episode No OBEpisode recorded.
== END 2025-02-03 11:54 | disposition home or self-care (01) ==
PROVIDERS: PCP Internal Medicine; Visit Provider Physician Assistant Medical
DX: H92.01 Otalgia, right ear (principal)

== ENCOUNTER → 2025-02-03 10:54 | Outpatient (BNVA) | payer OTHER, SELFPAY | PROVIDERS: PCP Internal Medicine; Visit Provider Physician Assistant Medical | DX: Z13.89 Encounter for screening for other disorder (principal) ==

== ENCOUNTER 2025-02-28 07:04 | Outpatient (REF) | payer OTHER, SELFPAY ==
--- OUTSIDE RECORDS SUMMARY | 2025-02-28 07:07 | XMS_ITS | Patient Health Record ---
Author Organization [facility] Marily Tran Address [address] [facility] [place] [address] Care Team Providers Care Business Intelligence Analyst Name Role Phone Phani ALLISON, Dolores Dumont Primary Care Provider Un available CesarOpal flores Unavailable [phone] Allergies Allergen (clinical drug ingredient) Drug/Non Drug Allergy documented on EMR Reaction Allergy Type Onset Date Status Penicillin Unknown Drug Allergy Active Reason For Referral No Information Medications Medication SIG (Take, Route, Frequency, Duration) Notes Start Date End Date Status Night Splint AFO - L1930 1 wear at rest; Duration: 30 days Active ZyrTEC Active Vitamin D3 Active Fish Oil Active Vitamin C Active Magnesium Glycinate Active Medrol amparo 4mg as directed orally a s directed; Duration: 6 days 07/22/2024 Activ e Social History Tobacco Use: Social History Observation [...] W/U Status Risk Notes Problem Plantar fasciitis (976507785) Plantar fasciitis (M72.2) Active confirmed Resistant to previous conservative treatment Problem Plantar fasciitis of left foot (75972939513104 101) Plantar fasciitis of left foot (M72.2) Active confirmed Problem Interstitial myositis (33683730) Interstitial myositis of left foot (M60.172) Active confirmed Vital Signs Blood pressure diastolic 80 mm Hg 09/13/2024 Height 5ft5in in 09/13/2024 Blood pressure systolic 117 mm Hg 09/13/2024 Weight 155 lbs 09/13/2024 BMI 25.79 kg/m2 09/13/2024 Encounters Encounter Location Date Provider Diagnosis [address] [address] 07/22/2024 Opal Perica Pain in left foot M79.672 ; Plantar fasciitis of left foot M72.2 ; Calcaneal spur, left foot M77.32 ; Interstitial myositis of left foot M60.172 and Bursitis of left foot M77.[address] [address] 09/13/2024 Opal Perica Pain in left foot M79.672 ; Calcaneal spur, left foot M77.32 ; Interstitial myositis of left foot M60.172 ; Bursitis of left foot M77.52 and Plantar fasciitis M72.[address] [address] [facility]/26/2024 [facility] [address] [address] 07/22/2024 Opalblade Steve [address] [address] 10/21/2024 Opal Steve Assessments Encounter Date Diagnosis (ICD Code) Assessment [...] Start Date Coverage End Date Blue Benefits [address] [address] [place] [address] [id number] [phone] Master Martell Self - patient is the insured Medical (General) History Medical History History ICD Code Measles Surgical History Surgery Date(Month/Year) Sub Acromial Decompression [phone]
--- OUTSIDE RECORDS SUMMARY | 2025-02-28 07:07 | XMS_ITS | Clinical Summary ---
Author Organization [facility] Address [address] [place] [phone] Phone Care Team Providers Care Dean Of Students Name Role Phone Dolores Jeronimo MD Primary Care Provider Unavailable Allergies Active Allergy Reactions Criticality Noted Date Comments Penicillins 04/12/2023 Medications No known medications Active Problems No known active problems Social History Tobacco Use Types Packs/Day Years Used Date Smoking Tobacco: Never Assessed Education Answer Date Recorded Are you interested in more education? Not on rob e 04/10/2023 Are you concerned about learning? Not on file 04/10/2023 No 04/10/2023 No 04/10/2023 Digital Access Answer Date Recorded No 04/10/2023 No 04/10/2023 Reliable internet access at home? Not on file 04/10/2023 Device with a working camera? Not on file Comments Unknown Sex and Gender Information Value Date Recorded Sex Assigned at Not on file Legal Sex Female 9:34 PM EDT Gender Identity Not on file Sexual Orientation Not on file Last Filed Vital Signs Vital Sign Reading Time Taken Comments Blood Pressure - - Pulse - - Temperature - - Respiratory Rate - - Oxygen Saturation - - Inhaled Oxygen Concentration - - Weight 70.3 kg (155 lb) 04/12/2023 10:51 AM EDT Height 167.6 cm (5' 6 ) 04/12/2023 10:51 AM EDT Body Mass Index 25.02 04/12/2023 10:51 AM EDT Plan of Treatment Health Maintenance Due Date Last Done Comments Adult Td,Tdap Booster 1971 LIPID PANEL 1971 DEPRESSION SCREENING 1983 SMOKING Hx and SMOKELESS TOBACCO SCREENING 1984 HEPATITIS C SCREENING 1989 HIV ONE-TIME SCREENING (18-65 YEARS) 1989 PAP SMEAR 1992 SCREENING FOR DIABETES 2006 MAMMOGRAM 2011 COLOGUARD 2016 COLONOSCOPY 2016 COLORECTAL CANCER SCREENING 2016 FIT TEST 2016 FOBT 2016 SIGMOIDOSCOPY 2016 VIRTUAL COLONOSCOPY 2016 PNEUMOCOCCAL VACCINES (50+ years) (1 of 1 - PCV) 2021 COVID-19 VACCINE (2023- season) 2024 06/01/2022, 07/13/2021, 11/11/2020, Additional history exists ZOSTER VACCINES Completed 11/19/2021, 05/15/2021 HEPATITIS A VACCINES Aged Out No long er eligible based on patient's age to complete this topic HIB VACCINES Aged Out No longer eligi ble based on patient's age to complete this topic MENINGOCOCCAL VACCINES (ACWY) Aged Out No longer eligible based on patient's age to complete this topic MENINGOCOCCAL VACCINES (B) Aged Out N o longer eligible based on patient's age to complete this topic Medical Devices Not [place] [address] [address] [place] [address] [place] [address] [employer] [place] [address] [employer] Care Teams Dean Of Students Relationship Specialty Start Date End Date Dolores Jeronimo MD PCP - General Internal Medicine 04/10/23 Additional Source Comments The information contained in this document represents components of the legal health record. It is not the complete legal health record.[facility]
[2025-03-03 09:10] LABS: Follicle Stimulating Hormone 115.5 mIU/mL
== END 2025-02-28 07:05 | disposition home or self-care (01) ==
LOC: HO.LAB 07:04
PROVIDERS: PCP Internal Medicine; Visit Provider Obstetrics & Gynecology
DX: Z78.0 Asymptomatic menopausal state (principal)
CPT/HCPCS: 36415; 83001